=== PATIENT | male | born 1975 | race African-American/Black ===

== ENCOUNTER 2016-09-24 21:27 | Inpatient (IN) | payer OTHER ==
--- NOTE | 2016-09-24 21:44 | HP ---
CIWA Score - CIWA Score Nausea/Vomitin-No Nausea/No Vomiting Muscle Tremors: 3 Anxiety: 3 Agitation: 3 Paroxysmal Sweats: 2 Orientation: 2-Disoriented Date<2 days Tacttile Disturbances: 2-Mild Itch/Numbness/Burn (B/L FINGERTIPS AND B/L TOES) Auditory Disturbances: 0-None Visual Disturbances: 0-None Headache: 2-Mild CIWA-Ar Total Score: 17 Admission ROS S - HPI Chief Complaint: WITHDRAWAL SYMPTOMS Allergies/Adverse Reactions: Allergies Allergy/AdvReac Type Severity Reaction Status Date / Time No Known Allergies Allergy Verified 10/12/13 14:23 History of Present Illness: 40 Y.O. MAN WITH A 10 YEAR H/O OF ALCOHOL AND DRUG DEPENDENCE IS SEEKING DETOX. HE WAS PREVIOUSLY HERE FOR DETOX IN 2013. HE REPORTS HIS LONGEST PERIOD OF SOBRIETY HAS BEEN 3 YEARS WHILE INCARCERATED. Exam Limitations: No Limitations - Ebola screening Have you traveled outside of the country in the last 21 days: No (N) Have you had contact with anyone from an Ebola affected area: No Do you have a fever: No - Review of Systems Constitutional: Chills, Diaphoresis, Loss of Appetite, Unintentional Wgt. Loss EENT: reports: Blurred Vision, Double Vision, Tearing Respiratory: reports: No Symptoms reported Cardiac: reports: No Symptoms Reported GI: reports: No Symptoms Reported : reports: No Symptoms Reported Musculoskeletal: reports: No Symptoms Reported Integumentary: reports: No Symptoms Reported Neuro: reports: Headache, Numbness, Tremors Endocrine: reports: No Symptoms Reported Hematology: reports: No Symptoms Reported Psychiatric: reports: Depressed Other Systems: Reviewed and Negative Patient History - Patient Medical History Hx Anemia: No Hx Asthma: No Hx Chronic Obstructive Pulmonary Disease (COPD): No Hx Cancer: No Hx Cardiac Disorders: No Hx Congestive Heart Failure: No Hx Hypertension: Yes (non compliance) Hx Hypercholesterolemia: Yes (non compliance) Hx Pacemaker: No HX Cerebrovascular Accident: No Hx Seizures: No Hx Dementia: No Hx Diabetes: Yes (non compliance with med) Hx Gastrointestinal Disorders: No Hx Liver Disease: No Hx Genitourinary Disorders: No Hx Sexually Transmitted Disorders: No Hx Renal Disease (ESRD): No Hx Thyroid Disease: No Hx Human Immunodeficiency Virus (HIV): No (last 2012) Hx Hepatitis C: No Hx Depression: Yes Hx Suicide Attempt: No Hx Bipolar Disorder: No Hx Schizophrenia: No - Patient Surgical History Past Surgical History: No - PPD History Previous Implant?: Yes Documented Results: Negative w/proof Date: 10/14/13 Results: 0 PPD to be Administered?: Yes - Reproductive History Patient is a Female of Child Bearing Age (11 -55 yrs old): No - Smoking Cessation Smoking history: Current every day smoker Have you smoked in the past 12 months: Yes Aproximately how many cigarettes per day: 10 Cigars Per Day: 0 Hx Chewing Tobacco Use: No Initiated information on smoking cessation: Yes 'Breaking Loose' booklet given: 09/24/16 - Substance & Tx. History Hx Alcohol Use: Yes Hx Substance Use: Yes Substance Use Type: Alcohol, Cocaine, Marijuana Hx Substance Use Treatment: Yes (DETOX AND REHAB ) - Substances Abused Alcohol Route: Oral Frequency: Daily Amount used: 2 PINTS OF VODKA + 2 CANS 24 OZ BEERS Age of first use: 16 Date of Last Use: 09/24/16 Cocaine Route: Smoking Frequency: Daily Amount used: $500 Age of first use: 30 Date of Last Use: 09/23/16 Marijuana/Hashish Route: Smoking Frequency: Daily Amount used: 4-5 BLUNTS Age of first use: 7 Date of Last Use: 09/24/16 Family Disease History - Family Disease History Family Disease History: Diabetes: Father (alcohol,), Mother (on insulin) , Heart Disease: Mother Admission Physical Exam [facility] - Vital Signs Vital Signs: Vital Signs 09/24/16 22:22 Temperature 97.0 F L Pulse Rate 99 H Respiratory 16 Rate Blood Pressure 120/73 - Physical General Appearance: Yes: Disheveled, Tremorous, Irritable, Anxious HEENTM: Yes: Hearing grossly Normal, Normal ENT Inspection, Normocephalic, Normal Voice, Tm's normal Respiratory: Yes: Chest Non-Tender, Lungs Clear, Normal Breath Sounds, No Respiratory Distress, No Accessory Muscle Use Neck: Yes: Trachea in good position Breast: Yes: Breast Exam Deferred Cardiology: Yes: Regular Rhythm, Regular Rate, S1, S2 Abdominal: Yes: Non Tender, Flat, Soft Genitourinary: Yes: Other (NO COMPLAINTS REPORTED) Back: Yes: Normal Inspection Musculoskeletal: Yes: full range of Motion Extremities: Yes: Normal Inspection, Normal Range of Motion, Tremors Neurological: Yes: Alert, Normal Response Integumentary: Yes: Normal Color, Dry, Warm Lymphatic: Yes: Within Normal Limits - Diagnostic (1) Cannabis dependence Current Visit: Yes Status: Chronic (2) Cocaine dependence Current Visit: Yes Status: Chronic (3) Alcohol dependence with uncomplicated withdrawal Current Visit: Yes Status: Chronic (4) Hypertension Current Visit: Yes Status: Chronic (5) Nicotine dependence Current Visit: Yes Status: Chronic (6) Diabetes type 2, uncontrolled Current Visit: Yes Status: Chronic Qualifiers: Diabetes mellitus complication status: with neurologic complications Diabetes mellitus complication detail: with unspecified neuropathy Cleared for Admission [facility] - Detox or Rehab [facility] Level of Care: Medically Managed Detox Regimen/Protocol: Librium S Breath Alcohol Content Breath Alcohol Content: 0 Vital Signs - Vital Signs Vital Signs Refused: No Temperature: 97.0 F Temperature Source: Oral Pulse Rate: 99 Respiratory Rate: 16 Blood Pressure: 120/73 BP Location: Left Arm Blood Pressure Position: Sitting - Height Height: 5 ft 4 in - Weight Weight: 173 lb Weight Measurement Method: Standing Scale Body Mass Index (BMI): 29.7 Urine Drug Screen - Control Is Test Valid: Yes - Results Drug Screen Negative: No Urine Drug Screen Results: THC-Marijuana, SADE-Cocaine
[2016-09-24 22:22] VITALS: BMI 29.7
[2016-09-24] MEDS ORDERED: P-EPHED 60MG/TRIPROLIDI 2.5MG TABLET PO PRN (22:36)
[2016-09-24] MEDS ORDERED: hydrOXYzine PAMOATE 50 MG CAPSULE (FP) PO PRN (22:36)
[2016-09-24] MEDS ORDERED: ACETAMINOPHEN 325 MG TABLET (FP) PO PRN (22:36)
[2016-09-24] MEDS ORDERED: chlordiazePOXIDE HCL 25 MG CAPSULE PO PRN (22:36)
[2016-09-24] MEDS ORDERED: MENTHOL/PHENOL 1 EACH UD MM PRN (22:36)
[2016-09-24] MEDS ORDERED: MAGNESIUM HYDROX 2400MG/30ML ORAL SUSPENSION 30 ML CUP PO PRN (22:36)
[2016-09-24] MEDS ORDERED: IBUPROFEN 400 MG TABLET (FP) PO PRN (22:36)
[2016-09-24] MEDS ORDERED: guaiFENesin/D-METHORPHAN HB 10 ML UNIT-DOSE CUPS PO PRN (22:36)
[2016-09-24] MEDS ORDERED: chlordiazePOXIDE HCL 25 MG CAPSULE PO ONE (22:36)
[2016-09-24] MEDS ORDERED: LOPERAMIDE HCL 2 MG CAPSULE PO PRN (22:36)
[2016-09-24] MEDS ORDERED: MAG HYDROX/AL HYDROX/SIMETH 30 ML UNIT-DOSE CUP PO PRN (22:36)
[2016-09-24] MEDS ORDERED: MAGNESIUM CITRATE 300 ML BOTTLE PO PRN (22:36)
[2016-09-24] MEDS ORDERED: INSULIN (NOVOLOG) ASPART 100 UNITS/ML 10ML VIAL ONE (23:46)
[2016-09-24] MEDS: INSULIN SLIDING SCALE (NOVOLOG) 1 VIAL SQ SCH (23:49)
[2016-09-25] MEDS: chlordiazePOXIDE HCL 25 MG CAPSULE PO SCH ×5 (05:42→22:27)
[2016-09-25] MEDS ORDERED: metFORMIN HCL 500 MG TABLET (FP) PO SCH (07:00)
[2016-09-25] MEDS ORDERED: INSULIN (NOVOLOG) ASPART 100 UNITS/ML 10ML VIAL ONE ×3 (07:41→16:58)
[2016-09-25] MEDS: INSULIN SLIDING SCALE (NOVOLOG) 1 VIAL SQ SCH ×4 (07:44→22:31)
--- NOTE | 2016-09-25 08:42 | EKG ---
Test Reason : Blood Pressure : / mmHG Vent. Rate : 105 BPM Atrial Rate : 105 BPM P-R Int : 166 ms QRS Dur : 082 ms QT Int : 330 ms P-R-T Axes : 059 061 070 degrees QTc Int : 436 ms SINUS TACHYCARDIA WITH PREMATURE SUPRAVENTRICULAR COMPLEXES MINIMAL VOLTAGE CRITERIA FOR LVH, MAY BE NORMAL VARIANT NONSPECIFIC T WAVE ABNORMALITY ABNORMAL ECG NO PREVIOUS ECGS AVAILABLE Confirmed by RAMÍREZ LILLY MD ([id number]) on 09/25/2016 8:41:54 AM Referred By: Confirmed By:RAMÍREZ LILLY MD
--- NOTE | 2016-09-25 10:27 | PN ---
S CIWA - CIWA Score Nausea/Vomitin-No Nausea/No Vomiting Muscle Tremors: 4-Moderate,w/Arms Extend Anxiety: 3 Agitation: 3 Paroxysmal Sweats: 3 Orientation: 0-Oriented Tacttile Disturbances: 2-Mild Itch/Numbness/Burn Auditory Disturbances: 0-None Visual Disturbances: 0-None Headache: 0-None Present CIWA-Ar Total Score: 15 BHS Progress Note (SOAP) Subjective: Anxiety,tremors,sweating,interrupted sleep,restless,numbness & tingling. Objective: 09/25/16 10:26 Vital Signs - 8 hr 09/25/16 09/25/16 09/25/16 03:30 06:28 09:29 Temperature 95.8 F L 95.9 F L Pulse Rate 96 H 93 H Respiratory 18 18 20 Rate Blood Pressure 123/84 123/85 Laboratory Tests 09/24/16 09/25/16 23:38 05:40 POC Glucometer > 600 327 Assessment: 09/25/16 10:26 Withdrawal sx. Plan: Continue detox
[2016-09-25] MEDS: PRENATAL VITAMINS W/ FOLIC ACID TABLET (FP) PO SCH (10:42)
[2016-09-25] MEDS: NICOTINE 21 MG/24 HOURS TOPICAL PATCH TD SCH (10:43)
[2016-09-25] MEDS: ASPIRIN 81 MG CHEWABLE TABLETS PO SCH (10:43)
[2016-09-25] MEDS: metFORMIN HCL 500 MG TABLET (FP) PO SCH ×2 (12:00→17:07)
[2016-09-25] MEDS ORDERED: glyBURIDE 5 MG TABLET (UD) PO ONE (13:30)
--- NOTE | 2016-09-25 13:32 | CONSULT ---
[facility] Psychiatric Consult - Data Date of interview: 09/25/16 Admission source: [facility] Identifying data: Readmisssion to [facility] for this 40 y/o AA male seeking detox treatment for alcohol,cocaine and marijuana dependence.Patient is single, a father of four,homeless,unemployed and deprived of any source of income. Substance Abuse History: - Smoking Cessation. Smoking history: Current every day smoker. Have you smoked in the past 12 months: Yes. Aproximately how many cigarettes per day: 10. Cigars Per Day: 0. Hx Chewing Tobacco Use: No. Initiated information on smoking cessation: Yes. 'Breaking Loose' booklet given : 09/24/16. - Substance & Tx. History. Hx Alcohol Use: Yes. Hx Substance Use : Yes. Substance Use Type: Alcohol, Cocaine, Marijuana. Hx Substance Use Treatment: Yes (DETOX AND REHAB ). - Substances Abused. Alcohol. Route: Oral. Frequency: Daily. Amount used: 2 PINTS OF VODKA + 2 CANS 24 OZ BEERS. Age of first use: 16. Date of Last Use: 09/24/16. Cocaine. Route: Smoking. Frequency: Daily. Amount used: $500. Age of first use: 30. Date of Last Use: 09/23/16. Marijuana/Hashish. Route: Smoking. Frequency: Daily. Amount used: 4-5 BLUNTS. Age of first use: 7. Date of Last Use: 09/24/16. Confirmed by patient. Medical History: Hypertension,hypercholesterolemia and diabetes mellitus. Psychiatric History: Patient denies. Physical/Sexual Abuse/Trauma History: Patient denies. Additional Comment: Urine Drug Screen Results: THC-Marijuana, SADE-Cocaine.Noted. Mental Status Exam - Mental Status Exam Alert and Oriented to: Place, Person Cognitive Function: Impaired Patient Appearance: Unkempt, Disheveled Mood: Withdrawn Affect: Mood Congruent Patient Behavior: Sedated (light sedation), Fatigued Speech Pattern: Delayed, Slurred (non spontaneous but goal-directed) Voice Loudness: Moderately Soft/Quiet Thought Process: Disoriented (to time : knows year and month;not exact date) Thought Disorder: Not Present Hallucinations: Denies Suicidal Ideation: Denies Homicidal Ideation: Denies Insight/Judgement: Poor Sleep: Well Appetite: Good Muscle strength/Tone: Normal Gait/Station: Normal (observed walking earlier around the unit) Psychiatric Findings - Problem List ([place] 1, 2,3) (1) Alcohol dependence with uncomplicated withdrawal Current Visit: Yes Status: Acute (2) Cannabis dependence Current Visit: Yes Status: Acute (3) Cocaine dependence Current Visit: Yes Status: Acute (4) Nicotine dependence Current Visit: Yes Status: Acute (5) Drug-induced mood disorder Current Visit: Yes Status: Acute (6) Diabetes type 2, uncontrolled Current Visit: Yes Status: Chronic Qualifiers: Diabetes mellitus complication status: with neurologic complications Diabetes mellitus complication detail: with unspecified neuropathy (7) Hypertension Current Visit: Yes Status: Chronic (8) Essential hypertension Current Visit: Yes Status: Chronic (9) Hypercholesterolemia Current Visit: Yes Status: Chronic - Initial Treatment Plan Initial Treatment Plan: Psychoeducation.Detoxification.Observation.
[2016-09-25] MEDS: glyBURIDE 5 MG TABLET (UD) PO SCH (17:07)
--- NOTE | 2016-09-25 17:32 | EKG ---
Test Reason : Blood Pressure : / mmHG Vent. Rate : 089 BPM Atrial Rate : 089 BPM P-R Int : 158 ms QRS Dur : 082 ms QT Int : 370 ms P-R-T Axes : 044 051 054 degrees QTc Int : 450 ms NORMAL SINUS RHYTHM NORMAL ECG WHEN COMPARED WITH ECG OF 24-SEP-2016 21:53, PREMATURE SUPRAVENTRICULAR COMPLEXES ARE NO LONGER PRESENT NONSPECIFIC T WAVE ABNORMALITY NO LONGER EVIDENT IN ANTERIOR LEADS CLINICAL CORRELATION IS RECOMMENDED Confirmed by TERRY LANTIGUA, YOEL ([id number]) on 09/25/2016 5:31:40 PM Referred By: Confirmed By:YOEL STEWART MD
[2016-09-25] MEDS: ATORVASTATIN CA 40 MG TABLET (FP) PO SCH (22:27)
[2016-09-25] MEDS: THIAMINE HCL 100 MG TABLET (FP) PO SCH (22:27)
[2016-09-25] MEDS: diphenhydrAMINE HCL 50 MG CAPSULE PO PRN (22:27)
[2016-09-25] MEDS: INSULIN DETEMIR 100 UNITS/ML MDV SQ SCH (22:31)
[2016-09-26] MEDS: metFORMIN HCL 500 MG TABLET (FP) PO SCH ×2 (06:02→16:54)
[2016-09-26] MEDS: chlordiazePOXIDE HCL 25 MG CAPSULE PO SCH ×3 (06:02→16:53)
[2016-09-26] MEDS: glyBURIDE 5 MG TABLET (UD) PO SCH ×2 (06:02→16:54)
[2016-09-26] MEDS ORDERED: INSULIN (NOVOLOG) ASPART 100 UNITS/ML 10ML VIAL ONE ×4 (06:05→21:40)
[2016-09-26] MEDS: INSULIN SLIDING SCALE (NOVOLOG) 1 VIAL SQ SCH ×5 (06:09→22:40)
[2016-09-26 09:52] LABS: ALBUMIN 3.2 g/dl (3.4-5.0); ANION GAP 8 (8-16); BILIRUBIN,TOTAL 0.2 mg/dL (0.2-1.0); CALCIUM 9.1 mg/dL (8.5-10.1); CO2 27 mmol/L (21-32); SGOT/AST 12 U/L (15-37); SGPT/ALT 28 U/L (12-78); TOT PROT 6.7 g/dl (6.4-8.2)
[2016-09-26 09:53] LABS: ALK PHOS 70 U/L (45-117)
[2016-09-26 09:59] LABS: MCHC 33.2 g/dl (32.0-35.9); MEAN CELL VOLUME 90.2 fl (80-96); MEAN PLT VOLUME 9.9 fl (7.5-11.1); PLATELET COUNT 189 K/MM3 (134-434)
[2016-09-26] MEDS: NICOTINE 21 MG/24 HOURS TOPICAL PATCH TD SCH (11:05)
[2016-09-26] MEDS: ASPIRIN 81 MG CHEWABLE TABLETS PO SCH (11:05)
[2016-09-26] MEDS: PRENATAL VITAMINS W/ FOLIC ACID TABLET (FP) PO SCH (11:05)
[2016-09-26 11:45] LABS: GLUCOSE,RANDOM 395 mg/dL (74-106)
[2016-09-26 13:01] LABS: HIV 1 & 2 AB NEGATIVE; HIV 1 AGp24 NEGATIVE
--- NOTE | 2016-09-26 13:17 | PN ---
S CIWA - CIWA Score Nausea/Vomitin-Mild Nausea/No Vomiting Muscle Tremors: 4-Moderate,w/Arms Extend Anxiety: 4-Mod. Anxious/Guarded Agitation: 3 Paroxysmal Sweats: 3 Orientation: 0-Oriented Tacttile Disturbances: 0-None Auditory Disturbances: 0-None Visual Disturbances: 0-None Headache: 0-None Present CIWA-Ar Total Score: 15 BHS Progress Note (SOAP) Subjective: Anxiety,tremors,sweating,interrupted sleep,restless Objective: 09/26/16 13:16 Vital Signs - 8 hr 09/26/16 09/26/16 06:26 09:17 Temperature 96.8 F L 98.2 F Pulse Rate 90 92 H Respiratory 18 20 Rate Blood Pressure 142/88 127/88 Laboratory Tests 09/24/16 09/25/16 09/25/16 23:38 05:40 07:00 WBC RBC Hgb Hct MCV MCHC RDW Plt Count MPV Sodium Potassium Chloride Carbon Dioxide Anion Gap BUN Creatinine Creat Clearance w eGFR POC Glucometer > 600 327 Random Glucose Calcium Total Bilirubin AST ALT Alkaline Phosphatase Total Protein Albumin HIV 1&2 Antibody Screen Negative HIV P24 Antigen Negative 09/25/16 09/25/16 09/25/16 11:23 16:26 21:03 WBC RBC Hgb Hct MCV MCHC RDW Plt Count MPV Sodium Potassium Chloride Carbon Dioxide Anion Gap BUN Creatinine Creat Clearance w eGFR POC Glucometer 600 250 244 Random Glucose Calcium Total Bilirubin AST ALT Alkaline Phosphatase Total Protein Albumin HIV 1&2 Antibody Screen HIV P24 Antigen 09/26/16 09/26/16 09/26/16 06:01 07:00 07:00 WBC 6.0 RBC 4.50 Hgb 13.5 Hct 40.6 MCV 90.2 MCHC 33.2 RDW 14.0 Plt Count 189 MPV 9.9 Sodium 138 Potassium 4.0 Chloride 103 Carbon Dioxide 27 Anion Gap 8 BUN 16 Creatinine 1.0 Creat Clearance w eGFR > 60 POC Glucometer 393 Random Glucose 395 H* Calcium 9.1 Total Bilirubin 0.2 D AST 12 L D ALT 28 D Alkaline Phosphatase 70 Total Protein 6.7 Albumin 3.2 L HIV 1&2 Antibody Screen HIV P24 Antigen labs noted Assessment: 09/26/16 13:17 Withdrawal sx. Plan: Continue detox
[2016-09-26] MEDS: chlordiazePOXIDE 5 MG CAPSULE PO SCH (22:36)
[2016-09-26] MEDS: THIAMINE HCL 100 MG TABLET (FP) PO SCH (22:36)
[2016-09-26] MEDS: ATORVASTATIN CA 40 MG TABLET (FP) PO SCH (22:36)
[2016-09-26] MEDS: diphenhydrAMINE HCL 50 MG CAPSULE PO PRN (22:37)
[2016-09-26] MEDS: INSULIN DETEMIR 100 UNITS/ML MDV SQ SCH (22:40)
[2016-09-27] MEDS: chlordiazePOXIDE 5 MG CAPSULE PO SCH ×3 (05:48→17:00)
[2016-09-27] MEDS ORDERED: INSULIN (NOVOLOG) ASPART 100 UNITS/ML 10ML VIAL ONE ×4 (05:51→21:30)
[2016-09-27] MEDS: INSULIN SLIDING SCALE (NOVOLOG) 1 VIAL SQ SCH ×4 (07:22→22:35)
[2016-09-27] MEDS: glyBURIDE 5 MG TABLET (UD) PO SCH ×2 (07:22→17:00)
[2016-09-27] MEDS: metFORMIN HCL 500 MG TABLET (FP) PO SCH ×2 (07:22→17:00)
[2016-09-27] MEDS: PRENATAL VITAMINS W/ FOLIC ACID TABLET (FP) PO SCH (10:42)
[2016-09-27] MEDS: NICOTINE 21 MG/24 HOURS TOPICAL PATCH TD SCH (10:42)
[2016-09-27] MEDS: ASPIRIN 81 MG CHEWABLE TABLETS PO SCH (10:42)
[2016-09-27 15:04] LABS: URINE APPEARANCE CLEAR; URINE BILIRUBIN NEGATIVE (NEGATIVE); URINE COLOR STRAW; URINE GLUCOSE (UA) 3+ (NEGATIVE); URINE KETONE NEGATIVE (NEGATIVE); URINE LEUK ESTERASE NEGATIVE (NEGATIVE); URINE NITRITE NEGATIVE (NEGATIVE); URINE UROBILINOGEN NEGATIVE E.U./dl (0.2-1.0)
[2016-09-27 15:10] LABS: URINE BLOOD 1+ (NEGATIVE); URINE PROTEIN 1+ (NEGATIVE)
[2016-09-27 15:14] LABS: URINE RBC 2 /hpf (0-3)
--- NOTE | 2016-09-27 15:45 | PN ---
BHS Progress Note (SOAP) Subjective: Sweating,interrupted sleep,restless Objective: 09/27/16 15:44 Vital Signs - 8 hr 09/27/16 09/27/16 10:09 13:33 Temperature 98.6 F 96.1 F L Pulse Rate 94 H 85 Respiratory 18 20 Rate Blood Pressure 130/89 139/88 Laboratory Last Values WBC 6.0 K/mm3 (4.0-10.0) 09/26/16 07:00 RBC 4.50 M/mm3 (4.00-5.60) 09/26/16 07:00 Hgb 13.5 GM/dL (11.7-16.9) 09/26/16 07:00 Hct 40.6 % (35.4-49) 09/26/16 07:00 MCV 90.2 fl (80-96) 09/26/16 07:00 MCHC 33.2 g/dl (32.0-35.9) 09/26/16 07:00 RDW 14.0 % (11.9-15.9) 09/26/16 07:00 Plt Count 189 K/MM3 (134-434) 09/26/16 07:00 MPV 9.9 fl (7.5-11.1) 09/26/16 07:00 Sodium 138 mmol/L (136-145) 09/26/16 07:00 Potassium 4.0 mmol/L (3.5-5.1) 09/26/16 07:00 Chloride 103 mmol/L (98-107) 09/26/16 07:00 Carbon Dioxide 27 mmol/L (21-32) 09/26/16 07:00 Anion Gap 8 (8-16) 09/26/16 07:00 BUN 16 mg/dL (7-18) 09/26/16 07:00 Creatinine 1.0 mg/dL (0.7-1.3) 09/26/16 07:00 Creat Clearance w eGFR > 60 (>60) 09/26/16 07:00 POC Glucometer 447 UNITS (()) 09/27/16 11:21 Random Glucose 395 mg/dL (74-106) H* 09/26/16 07:00 Calcium 9.1 mg/dL (8.5-10.1) 09/26/16 07:00 Total Bilirubin 0.2 mg/dL (0.2-1.0) D 09/26/16 07:00 AST 12 U/L (15-37) L D 09/26/16 07:00 ALT 28 U/L (12-78) D 09/26/16 07:00 Alkaline Phosphatase 70 U/L (45-117) 09/26/16 07:00 Total Protein 6.7 g/dl (6.4-8.2) 09/26/16 07:00 Albumin 3.2 g/dl (3.4-5.0) L 09/26/16 07:00 Urine Color Straw 09/27/16 11:30 Urine Appearance Clear 09/27/16 11:30 Urine pH 6.0 (5.0-8.0) 09/27/16 11:30 Ur Specific [place] 1.029 (1.001-1.035) 09/27/16 11:30 Urine Protein 1+ (NEGATIVE) H 09/27/16 11:30 Urine Glucose (UA) 3+ (NEGATIVE) H 09/27/16 11:30 Urine Ketones Negative (NEGATIVE) 09/27/16 11:30 Urine Blood 1+ (NEGATIVE) H 09/27/16 11:30 Urine Nitrite Negative (NEGATIVE) 09/27/16 11:30 Urine Bilirubin Negative (NEGATIVE) 09/27/16 11:30 Urine Urobilinogen Negative E.U./dl (0.2-1.0) 09/27/16 11:30 Ur Leukocyte Esterase Negative (NEGATIVE) 09/27/16 11:30 Urine RBC 2 /hpf (0-3) 09/27/16 11:30 Urine WBC None /hpf (3-5) 09/27/16 11:30 Ur Epithelial Cells Rare /hpf (FEW) 09/27/16 11:30 RPR Titer Nonreactive (NONREACTIVE) 09/26/16 07:00 Hepatitis C Antibody <0.1 s/co ratio (0.0-0.9) 09/26/16 07:00 HIV 1&2 Antibody Screen Negative 09/25/16 07:00 HIV P24 Antigen Negative 09/25/16 07:00 labs noted Assessment: 09/27/16 15:45 Withdrawal sx. Plan: Continue detox
[2016-09-27] MEDS: chlordiazePOXIDE HCL 10 MG CAPSULE PO SCH (22:34)
[2016-09-27] MEDS: ATORVASTATIN CA 40 MG TABLET (FP) PO SCH (22:34)
[2016-09-27] MEDS: THIAMINE HCL 100 MG TABLET (FP) PO SCH (22:34)
[2016-09-27] MEDS: INSULIN DETEMIR 100 UNITS/ML MDV SQ SCH (22:35)
[2016-09-27] MEDS: diphenhydrAMINE HCL 50 MG CAPSULE PO PRN (22:36)
[2016-09-28] MEDS: chlordiazePOXIDE HCL 10 MG CAPSULE PO SCH (06:09)
[2016-09-28] MEDS: metFORMIN HCL 500 MG TABLET (FP) PO SCH (06:09)
[2016-09-28] MEDS: glyBURIDE 5 MG TABLET (UD) PO SCH (06:09)
[2016-09-28] MEDS ORDERED: INSULIN (NOVOLOG) ASPART 100 UNITS/ML 10ML VIAL ONE (06:15)
[2016-09-28] MEDS: INSULIN SLIDING SCALE (NOVOLOG) 1 VIAL SQ SCH (06:17)
[2016-09-28 06:37] VITALS: BP 130/86; PULSE 94; TEMP 97.5
--- NOTE | 2016-09-28 13:22 | DS ---
[facility] Detox Discharge Summary Admission Date: 09/24/16 Discharge Date: 09/28/16 - History Present History: Alcohol Dependence, Cannabis Dependence, Cocaine Dependence Additional Comments: ADVISED PATIENT TO [place] [facility] [place] [facility] [place] AFTER DISCHARGE FROM DETOX FOR GENERAL MEDICAL ASSESSMENT AND FOR ABNORMAL ADMISSION LAB VALUES. Pertinent Past History: HTN, Hypercholesterolemia, Type II DM, Depression. - Physical Exam Results Vital Signs: Vital Signs Temperature 97.5 F L 09/28/16 06:36 Pulse Rate 94 H 09/28/16 06:36 Respiratory Rate 18 09/28/16 06:36 Blood Pressure 130/86 09/28/16 06:36 O2 Sat by Pulse Oximetry (%) Pertinent Admission Physical Exam Findings: WITHDRAWAL SYMPTOMS. Laboratory Last Values WBC 6.0 K/mm3 (4.0-10.0) 09/26/16 07:00 RBC 4.50 M/mm3 (4.00-5.60) 09/26/16 07:00 Hgb 13.5 GM/dL (11.7-16.9) 09/26/16 07:00 Hct 40.6 % (35.4-49) 09/26/16 07:00 MCV 90.2 fl (80-96) 09/26/16 07:00 MCHC 33.2 g/dl (32.0-35.9) 09/26/16 07:00 RDW 14.0 % (11.9-15.9) 09/26/16 07:00 Plt Count 189 K/MM3 (134-434) 09/26/16 07:00 MPV 9.9 fl (7.5-11.1) 09/26/16 07:00 Sodium 138 mmol/L (136-145) 09/26/16 07:00 Potassium 4.0 mmol/L (3.5-5.1) 09/26/16 07:00 Chloride 103 mmol/L (98-107) 09/26/16 07:00 Carbon Dioxide 27 mmol/L (21-32) 09/26/16 07:00 Anion Gap 8 (8-16) 09/26/16 07:00 BUN 16 mg/dL (7-18) 09/26/16 07:00 Creatinine 1.0 mg/dL (0.7-1.3) 09/26/16 07:00 Creat Clearance w eGFR > 60 (>60) 09/26/16 07:00 POC Glucometer 273 UNITS (()) 09/28/16 06:12 Random Glucose 395 mg/dL (74-106) H* 09/26/16 07:00 Calcium 9.1 mg/dL (8.5-10.1) 09/26/16 07:00 Total Bilirubin 0.2 mg/dL (0.2-1.0) D 09/26/16 07:00 AST 12 U/L (15-37) L D 09/26/16 07:00 ALT 28 U/L (12-78) D 09/26/16 07:00 Alkaline Phosphatase 70 U/L (45-117) 09/26/16 07:00 Total Protein 6.7 g/dl (6.4-8.2) 09/26/16 07:00 Albumin 3.2 g/dl (3.4-5.0) L 09/26/16 07:00 Urine Color Straw 09/27/16 11:30 Urine Appearance Clear 09/27/16 11:30 Urine pH 6.0 (5.0-8.0) 09/27/16 11:30 Ur Specific [place] 1.029 (1.001-1.035) 09/27/16 11:30 Urine Protein 1+ (NEGATIVE) H 09/27/16 11:30 Urine Glucose (UA) 3+ (NEGATIVE) H 09/27/16 11:30 Urine Ketones Negative (NEGATIVE) 09/27/16 11:30 Urine Blood 1+ (NEGATIVE) H 09/27/16 11:30 Urine Nitrite Negative (NEGATIVE) 09/27/16 11:30 Urine Bilirubin Negative (NEGATIVE) 09/27/16 11:30 Urine Urobilinogen Negative E.U./dl (0.2-1.0) 09/27/16 11:30 Ur Leukocyte Esterase Negative (NEGATIVE) 09/27/16 11:30 Urine RBC 2 /hpf (0-3) 09/27/16 11:30 Urine WBC None /hpf (3-5) 09/27/16 11:30 Ur Epithelial Cells Rare /hpf (FEW) 09/27/16 11:30 RPR Titer Nonreactive (NONREACTIVE) 09/26/16 07:00 Hepatitis C Antibody <0.1 s/co ratio (0.0-0.9) 09/26/16 07:00 HIV 1&2 Antibody Screen Negative 09/25/16 07:00 HIV P24 Antigen Negative 09/25/16 07:00 LABS NOTED. - Treatment Hospital Course: Detox Protocol Followed, Detoxed Safely, Responded well, Discharged Condition Good Patient has Accepted a Rehab Referral to: NO - PATIENT TO GO HOME AT THIS TIME, WILL PURSUE REHAB AT A LATER DATE. - Medication Discharge Medications: Ambulatory Orders Aspirin [ASA -] 81 mg PO DAILY #30 mg 09/28/16 Atorvastatin Ca [Lipitor] 80 mg PO HS #30 mg 09/28/16 Enalapril Maleate [Vasotec -] 10 mg PO BID #60 mg 09/28/16 Glyburide [Micronase -] 5 mg PO BID #60 mg 09/28/16 Insulin (Novolog) [Novolog Flexpen -] 0 units SQ ACHS #1 ml 09/28/16 Insulin Glargine,Hum.rec.anlog [Lantus Solostar PEN -] 15 units SQ HS #1 ml Loratadine [Claritin -] 10 mg PO DAILY #30 mg 09/28/16 Metformin HCl [Glucophage] 1,000 mg PO BIDAC #60 mg 09/28/16 - Diagnosis (1) Alcohol dependence with uncomplicated withdrawal Status: Acute (2) Cannabis dependence Status: Acute (3) Drug-induced mood disorder Status: Acute (4) Nicotine dependence Status: Chronic Qualifiers: Nicotine product type: cigarettes Substance use status: uncomplicated Qualified Code(s): F17.210 - Nicotine dependence, cigarettes, uncomplicated (5) Syncope Status: Acute Qualifiers: Syncope type: unspecified Qualified Code(s): R55 - Syncope and collapse (6) Diabetes type 2, uncontrolled Status: Chronic Qualifiers: Diabetes mellitus complication status: with neurologic complications Diabetes mellitus complication detail: with unspecified neuropathy Diabetes mellitus terminologist insulin use: with jail use Qualified Code(s): E11.40 - Type 2 diabetes mellitus with diabetic neuropathy, unspecified; E11.65 - Type 2 diabetes mellitus with hyperglycemia; Z79.4 - terminal clerk (current) use of insulin (7) Essential hypertension Status: Chronic (8) Hypercholesterolemia Status: Chronic (9) Cocaine dependence, uncomplicated Status: Acute - AMA Did Patient Leave Against Medical Advice: No
== END 2016-09-28 09:45 | disposition home or self-care (01) | DRG 774 ==
LOC: YASAS 21:27 → Y3N 21:40
PROVIDERS: ADMIT Internal Medicine; ATTEND Internal Medicine
PROC: HZ2ZZZZ Detoxification Services for Substance Abuse Treatment (ICD-10-PCS; principal; 2016-09-28)
DX: F10.230 Alcohol dependence with withdrawal, uncomplicated (principal); F14.20 Cocaine dependence, uncomplicated; F12.20 Cannabis dependence, uncomplicated; F17.210 Nicotine dependence, cigarettes, uncomplicated; F19.24 Other psychoactive substance dependence with psychoactive substance-induced mood disorder; E11.65 Type 2 diabetes mellitus with hyperglycemia; E11.40 Type 2 diabetes mellitus with diabetic neuropathy, unspecified; Z79.4 Long term (current) use of insulin; I10 Essential (primary) hypertension; E78.00 Pure hypercholesterolemia, unspecified
CPT/HCPCS: 36415; 80053; 81003; 81015; 85027; 86593; 87389; 93005; 93010

== ENCOUNTER 2020-02-13 17:06 | Inpatient (IN) | payer OTHER ==
--- NOTE | 2020-02-13 18:33 | BHS.RME ---
Substance Use & Tx History - Substance Use History Alcohol Substance amount: 1 jazmin Arteaga Frequency of use: Daily Substance route: Oral Date of Last Use: 02/13/20 Cocaine- Powder Substance amount: 3 grams Frequency of use: Daily Substance route: Inhalation (ex: sniffing or snorting) Date of Last Use: 02/12/20 Marijuana/Hashish Substance amount: 10 blunts Frequency of use: Daily Substance route: Smoking Date of Last Use: 02/12/20 Physical/Psych/Mental Status - Behavior General Behavior: Increased activity (restlessness, agitation) Eye Contact: Normal - Cooperativeness Cooperativeness: Cooperative - Thinking Thought Processes: Goal Directed - Physical Health Problems Is patient presently having any pain?: No Does patient presently have any injuries (include location): No Does patient currently have a fever: No Is patient : No CIWA Nausea/Vomitin-No Nausea/No Vomiting Muscle Tremors: 2 Anxiety: 3 Agitation: 1-Slight > Activity Paroxysmal Sweats: No Perspiration Orientation: 0-Oriented Tacttile Disturbances: 1-Very Mild Itch/Numbness Auditory Disturbances: 0-None Visual Disturbances: 2-Mild Sensitivity Headache: 5-Severe CIWA-Ar Total Score: 14
--- NOTE | 2020-02-13 18:42 | HP ---
CIWA Score Nausea/Vomitin-No Nausea/No Vomiting Muscle Tremors: 2 Anxiety: 3 Agitation: 1-Slight > Activity Paroxysmal Sweats: No Perspiration Orientation: 0-Oriented Tacttile Disturbances: 1-Very Mild Itch/Numbness Auditory Disturbances: 0-None Visual Disturbances: 2-Mild Sensitivity Headache: 5-Severe CIWA-Ar Total Score: 14 - Admission Criteria OASAS Guidelines: Admission for Medically Managed Detox: Requires at least one of the followin. CIWA greater than 12 2. Seizures within the past 24 hours 3. Delirium tremens within the past 24 hours 4. Hallucinations within the past 24 hours 5. Acute intervention needed for co occurring medical disorder 6. Acute intervention needed for co occurring psychiatric disorder 7. Severe withdrawal that cannot be handled at a lower level of care (continued vomiting, continued diarrhea, abnormal vital signs) requiring intravenous medication and/or fluids 8. Patient presents the following: CIWA greater than 12 Admission Criteria Met: Admission criteria met Admitting History and Physical - Admission Chief Complaint: alcohol withdrawal symptoms History Source: Patient Limitations to Obtaining History: No Limitations - Smoking History Smoking history: Current every day smoker Have you smoked in the past 12 months: Yes Aproximately how many cigarettes per day: 10 - Alcohol/Substance Use Hx Alcohol Use: Yes Admission ROS BHS - HPI Chief Complaint: alcohol withdrawal sx Allergies/Adverse Reactions: Allergies Allergy/AdvReac Type Severity Reaction Status Date / Time No Known Allergies Allergy Verified 09/25/16 01:08 History of Present Illness: Patient is a 44 yo, AA, homeless male with hx of alcohol dependence is here seeking inpatient detox d/t withdrawal symptoms. Patient reports he relapsed about one month ago after the of his spouse do to an overdose. PMHX: DM II, Hyperlipidemia and HTN non-compliant with medications. Psych: bipolar and schizophrenia. Denies suicidal / homicidal ideation. Patient reports longest period of sobriety was while he was in alf 2011 -2013. Denies hx of seizures or ETOH syncope. Reports last detox [facility] in 2017. Exam Limitations: No Limitations - Review of Systems Constitutional: Loss of Appetite, Changes in sleep, Weakness, Unintentional Wgt. Loss EENT: reports: No Symptoms Reported Respiratory: reports: No Symptoms reported Cardiac: reports: No Symptoms Reported GI: reports: Poor Appetite, Poor Fluid Intake : reports: No Symptoms Reported Musculoskeletal: reports: No Symptoms Reported Integumentary: reports: No Symptoms Reported Neuro: reports: Headache, Weakness Endocrine: reports: Increased Thirst, Change in Weight Hematology: reports: No Symptoms Reported Psychiatric: reports: Orientated x3, Anxious, Depressed Other Systems: Reviewed and Negative Patient History - Patient Medical History Hx Anemia: No Hx Asthma: No Hx Chronic Obstructive Pulmonary Disease (COPD): No Hx Cancer: No Hx Cardiac Disorders: No Hx Congestive Heart Failure: No Hx Hypertension: Yes (non-compliance ) Hx Hypercholesterolemia: Yes (non compliance) Hx Pacemaker: No HX Cerebrovascular Accident: No Hx Seizures: No Hx Dementia: No Hx Diabetes: Yes Hx Gastrointestinal Disorders: No Hx Liver Disease: No Hx Genitourinary Disorders: No Hx Sexually Transmitted Disorders: No Hx Renal Disease (ESRD): No Hx Thyroid Disease: No Hx Human Immunodeficiency Virus (HIV): No (last test 2018) Hx Hepatitis C: No Hx Depression: Yes Hx Suicide Attempt: No Hx Bipolar Disorder: No Hx Schizophrenia: Yes - Patient Surgical History Past Surgical History: No - PPD History Previous Implant?: Yes Documented Results: Negative w/proof Date: 09/27/16 Results: 0 PPD to be Administered?: Yes - Smoking Cessation Smoking history: Current every day smoker Have you smoked in the past 12 months: Yes Aproximately how many cigarettes per day: 10 Cigars Per Day: 0 Hx Chewing Tobacco Use: No Initiated information on smoking cessation: Yes 'Breaking Loose' booklet given: 02/13/20 - Substance & Tx. History Hx Alcohol Use: Yes Hx Substance Use: Yes Substance Use Type: Alcohol, Marijuana Hx Substance Use Treatment: Yes ([facility] 2016) - Substances abused Alcohol Substance route: Oral Frequency: Daily Amount used: 1 gallon [place] Age of first use: 16 Date of last use: 02/13/20 Cocaine Substance route: Inhalation Amount used: 3 gram Age of first use: 24 Date of last use: 02/12/20 Marijuana/Hashish Substance route: Smoking Frequency: Daily Amount used: 10 blunts Age of first use: 12 Date of last use: 02/12/20 Admission Physical Exam BHS - Physical General Appearance: Yes: Appropriately Dressed, Mild Distress, Thin, Anxious HEENTM: Yes: EOMI, Hearing grossly Normal, Normal ENT Inspection, Normocephalic, Normal Voice, LUÍS, Pharynx Normal, Tm's normal Respiratory: Yes: Within Normal Limits Neck: Yes: Within Normal Limits Breast: Yes: Breast Exam Deferred Cardiology: Yes: Regular Rhythm, Regular Rate Abdominal: Yes: Normal Bowel Sounds, Non Tender, Flat, Soft Genitourinary: Yes: Within Normal Limits Back: Yes: Within Normal Limits, Normal Inspection Extremities: Yes: Normal Capillary Refill, Normal Inspection, Normal Range of Motion, Non-Tender Neurological: Yes: ed special education teacher II-XII NML intact, Fully Oriented, Alert, Motor Strength 5/5, Depressed Affect Integumentary: Yes: Normal Color, Warm, Moist Lymphatic: Yes: Within Normal Limits - Diagnostic (1) Homeless Current Visit: Yes Status: Acute (2) Alcohol dependence with uncomplicated withdrawal Current Visit: Yes Status: Acute (3) Cocaine dependence, uncomplicated Current Visit: Yes Status: Acute (4) Diabetes mellitus Current Visit: Yes Status: Chronic Qualifiers: Diabetes mellitus type: type 2 (5) Essential hypertension Current Visit: Yes Status: Chronic (6) Hypercholesterolemia Current Visit: Yes Status: Chronic (7) Nicotine dependence Current Visit: Yes Status: Chronic Qualifiers: Nicotine product type: cigarettes Substance use status: uncomplicated Qualified Code(s): F17.210 - Nicotine dependence, cigarettes, uncomplicated Cleared for Admission S - Detox or Rehab [facility] Level of Care: Medically Managed Detox Regimen/Protocol: Librium Urine Drug Screen - Results Urine drug screen results: THC-Marijuana, SADE-Cocaine Inpatient Rehab Admission - Rehab Decision to Admit Inpatient rehab admission?: No
[2020-02-13 19:02] VITALS: BMI 25.4
[2020-02-13] MEDS ORDERED: hydrOXYzine PAMOATE 25 MG CAPSULE (FP) PO PRN (19:09)
[2020-02-13] MEDS ORDERED: MAGNESIUM CITRATE 300 ML BOTTLE PO PRN (19:09)
[2020-02-13] MEDS ORDERED: MENTHOL/PHENOL 1 EACH UD MM PRN (19:09)
[2020-02-13] MEDS ORDERED: METHOCARBAMOL 500 MG TABLET PO PRN (19:09)
[2020-02-13] MEDS ORDERED: BISMUTH SUBSALICYLATE 524 MG/30 ML UD PO PRN (19:09)
[2020-02-13] MEDS ORDERED: NICOTINE POLACRILEX 2 MG GUM BUC PRN (19:09)
[2020-02-13] MEDS ORDERED: chlordiazePOXIDE HCL 10 MG CAPSULE PO PRN (19:09)
[2020-02-13] MEDS ORDERED: MAG HYDROX/AL HYDROX/SIMETH 30 ML UNIT-DOSE CUP PO PRN (19:09)
[2020-02-13] MEDS ORDERED: IBUPROFEN 400 MG TABLET (FP) PO PRN (19:09)
[2020-02-13] MEDS ORDERED: MAGNESIUM HYDROX 2400MG/30ML ORAL SUSPENSION 30 ML CUP PO PRN (19:09)
[2020-02-13] MEDS ORDERED: ONDANSETRON *ODT* 4 MG TABLET SL ONE (19:09)
[2020-02-13] MEDS: THIAMINE HCL 100 MG TABLET (FP) PO SCH (22:10)
[2020-02-13] MEDS: chlordiazePOXIDE HCL 25 MG CAPSULE PO SCH (22:11)
[2020-02-13] MEDS: MELATONIN 5 MG TABLETS PO SCH (22:12)
[2020-02-14] MEDS: chlordiazePOXIDE HCL 25 MG CAPSULE PO SCH ×3 (05:36→21:50)
[2020-02-14] MEDS: INSULIN SLIDING SCALE (NOVOLOG) 1 VIAL SQ SCH ×2 (06:49→17:22)
[2020-02-14] MEDS: PRENATAL VITAMINS W/ FOLIC ACID TABLET (FP) PO SCH (10:03)
[2020-02-14] MEDS: NICOTINE 7 MG/24 HOURS TOPICAL PATCH TD SCH (10:04)
[2020-02-14 10:11] LABS: HEMATOCRIT 43.5 % (35.4-49); HEMOGLOBIN 14.3 GM/dL (11.7-16.9); MCH 30.6 pg (25.7-33.7); MEAN CELL VOLUME 92.7 fl (80-96); MEAN PLT VOLUME 10.7 fl (7.5-11.1); PLATELET COUNT 255 K/MM3 (134-434); RBC 4.69 M/mm3 (4.00-5.60); RDW 15.1 % (11.9-15.9); WHITE BLOOD COUNT 8.1 K/mm3 (4.0-10.0)
[2020-02-14 10:29] LABS: ALBUMIN 3.1 g/dl (3.4-5.0); BLOOD UREA NITROGEN 17.2 mg/dL (7-18); CALCIUM 9.3 mg/dL (8.5-10.1); POTASSIUM 4.2 mmol/L (3.5-5.1)
[2020-02-14 10:34] LABS: BILIRUBIN,TOTAL 0.3 mg/dL (0.2-1); CREATININE 1.4 mg/dL (0.55-1.3); TOT PROT 7.4 g/dl (6.4-8.2)
--- NOTE | 2020-02-14 10:52 | PN ---
S CIWA - CIWA Score Nausea/Vomitin-No Nausea/No Vomiting Muscle Tremors: 2 Anxiety: 3 Agitation: 0-Normal Activity Paroxysmal Sweats: 3 Orientation: 0-Oriented Tacttile Disturbances: 0-None Auditory Disturbances: 0-None Visual Disturbances: 0-None Headache: 2-Mild CIWA-Ar Total Score: 10 BHS Progress Note (SOAP) Subjective: c/o sweats, anxiety, and shakes, headache. Objective: 02/14/20 10:51 Vital Signs 02/14/20 02/14/20 06:31 09:34 Temperature 97.7 F 97.7 F Pulse Rate 87 73 Respiratory 18 18 Rate Blood Pressure 145/84 101/63 O2 Sat by Pulse 97 97 Oximetry (%) Laboratory Last Values WBC 8.1 K/mm3 (4.0-10.0) 02/14/20 07:25 RBC 4.69 M/mm3 (4.00-5.60) 02/14/20 07:25 Hgb 14.3 GM/dL (11.7-16.9) 02/14/20 07:25 Hct 43.5 % (35.4-49) 02/14/20 07:25 MCV 92.7 fl (80-96) 02/14/20 07:25 MCH 30.6 pg (25.7-33.7) 02/14/20 07:25 MCHC 33.0 g/dl (32.0-35.9) 02/14/20 07:25 RDW 15.1 % (11.9-15.9) 02/14/20 07:25 Plt Count 255 K/MM3 (134-434) D 02/14/20 07:25 MPV 10.7 fl (7.5-11.1) 02/14/20 07:25 Sodium 141 mmol/L (136-145) 02/14/20 07:25 Potassium 4.2 mmol/L (3.5-5.1) 02/14/20 07:25 Chloride 106 mmol/L (98-107) 02/14/20 07:25 Carbon Dioxide 28 mmol/L (21-32) 02/14/20 07:25 Anion Gap 7 MMOL/L (8-16) L 02/14/20 07:25 BUN 17.2 mg/dL (7-18) 02/14/20 07:25 Creatinine 1.4 mg/dL (0.55-1.3) H 02/14/20 07:25 Est GFR (CKD-EPI)AfAm 69.34 02/14/20 07:25 Est GFR (CKD-EPI)NonAf 59.83 02/14/20 07:25 POC Glucometer 190 UNITS (80-120) 02/14/20 05:35 Random Glucose 205 mg/dL (74-106) H 02/14/20 07:25 Calcium 9.3 mg/dL (8.5-10.1) 02/14/20 07:25 Total Bilirubin 0.3 mg/dL (0.2-1) 02/14/20 07:25 AST 18 U/L (15-37) 02/14/20 07:25 ALT 18 U/L (13-61) 02/14/20 07:25 Alkaline Phosphatase 70 U/L (45-117) 02/14/20 07:25 Total Protein 7.4 g/dl (6.4-8.2) 02/14/20 07:25 Albumin 3.1 g/dl (3.4-5.0) L 02/14/20 07:25 Syphilis Serology Non-reactive (NONREACTIVE) 02/14/20 07:25 Labs noted. Assessment: 02/14/20 10:52 AOX3, in no acute respiratory distress. Full ROM, ambulating in the unit. Withdrawal symptoms. Plan: continue detox.
--- NOTE | 2020-02-14 15:00 | EKG ---
Test Reason : Blood Pressure : / mmHG Vent. Rate : 091 BPM Atrial Rate : 091 BPM P-R Int : 170 ms QRS Dur : 072 ms QT Int : 364 ms P-R-T Axes : 058 047 071 degrees QTc Int : 447 ms NORMAL SINUS RHYTHM MODERATE VOLTAGE CRITERIA FOR LVH, MAY BE NORMAL VARIANT BORDERLINE ECG WHEN COMPARED WITH ECG OF 25-SEP-2016 08:40, NO SIGNIFICANT CHANGE WAS FOUND Confirmed by Hira Freedman ([id number]) on 02/14/2020 3:00:00 PM Referred By: Jc Jimenez Confirmed By:Hira Freedman
--- NOTE | 2020-02-14 15:30 | CONSULT ---
[facility] Psychiatric Consult - Data Date of interview: 02/14/20 Admission source: [facility] Identifying data: Readmisssion to [address] for this 44 y/o AA male self-referred for detoxification treatment. [place] issues : alcohol, cocaine, marijuana, nicotine. Patient is (as per self-report : a week ago from drug overdose), father of one (claimed four dependents at a previous encounter with board writer), homeless, currently unemployed (recently laid off and s [employer] unemployment benefits) and supported on undisclosed means. Substance Abuse History: Discussed with the patient. WINSTON profile as follows : Smoking history: Current every day smoker. Have you smoked in the past 12 months: Yes. Approximately how many cigarettes per day: 10. Cigars Per Day: 0. Hx Chewing Tobacco Use: No. Initiated information on smoking cessation: Yes. 'Breaking Loose' booklet given: 02/13/20. - Substance & Tx. History. Hx Alcohol Use: Yes. Hx Substance Use: Yes. Substance Use Type: Alcohol, Marijuana. Hx Substance Use Treatment: Yes ([facility] 2016). - Substances abused. Alcohol. Substance route: Oral. Frequency: Daily. Amount used: 1 gallon [place]. Age of first use: 16. Date of last use: 02/13/20. Cocaine. Substance route: Inhalation. Amount used: 3 gram. Age of first use: 24. Date of last use: 02/12/20. Marijuana/Hashish. Substance route: Smoking. Frequency: Daily. Amount used: 10 blunts. Age of first use: 12. Date of last use: 02/12/20. History of multiple WINSTON treatment failures. Medical History: Medical profile is remarkable for hypertension, dyslipidemia and diabetes mellitus. No known allergies. Psychiatric History: Patient denies history of psychiatric hospitalizations, OPD care or suicide attempts. Physical/Sexual Abuse/Trauma History: Trauma : recent of from a drug overdose (self-report). Additional Comment: Urine drug screen results: THC-Marijuana, SADE-Cocaine. Noted. Mental Status Exam - Mental Status Exam Alert and Oriented to: Time, Place, Person Cognitive Function: Good Patient Appearance: Well Groomed (short stature) Mood: Hopeful Affect: Appropriate, Normal Range Patient Behavior: Inappropriate (patient exhibits a casual attitude which is odd in view of the recent of ), Passive, Cooperative Speech Pattern: Clear Voice Loudness: Normal Thought Process: Goal Oriented Thought Disorder: Not Present Hallucinations: Denies Suicidal Ideation: Denies Homicidal Ideation: Denies Insight/Judgement: Poor Sleep: Well Appetite: Good Gait/Station: Normal Psychiatric Findings - Problem List ([place] 1, 2,3) (1) Alcohol dependence with uncomplicated withdrawal Status: Acute (2) Cannabis dependence Status: Chronic (3) Cocaine dependence Status: Chronic (4) Nicotine dependence Status: Acute Qualifiers: Nicotine product type: cigarettes Substance use status: in withdrawal Qualified Code(s): F17.213 - Nicotine dependence, cigarettes, with withdrawal - Initial Treatment Plan Initial Treatment Plan: Psychoeducation. Empathy provided. Sleep hygiene. Detoxification in progress. Observation.
[2020-02-14] MEDS: THIAMINE HCL 100 MG TABLET (FP) PO SCH (22:09)
[2020-02-14] MEDS: MELATONIN 5 MG TABLETS PO SCH (22:09)
[2020-02-15] MEDS: chlordiazePOXIDE 5 MG CAPSULE PO SCH ×3 (06:14→23:35)
[2020-02-15] MEDS: INSULIN SLIDING SCALE (NOVOLOG) 1 VIAL SQ SCH ×2 (06:17→17:15)
[2020-02-15] MEDS ORDERED: INSULIN SLIDING SCALE (NOVOLOG) 1 VIAL SQ ONE (06:17)
[2020-02-15] MEDS: NICOTINE 7 MG/24 HOURS TOPICAL PATCH TD SCH (10:30)
[2020-02-15] MEDS: PRENATAL VITAMINS W/ FOLIC ACID TABLET (FP) PO SCH (10:30)
--- NOTE | 2020-02-15 11:25 | PN ---
S CIWA - CIWA Score Nausea/Vomitin-Mild Nausea/No Vomiting Muscle Tremors: 2 Anxiety: 2 Agitation: 0-Normal Activity Paroxysmal Sweats: No Perspiration Orientation: 0-Oriented Tacttile Disturbances: 1-Very Mild Itch/Numbness Auditory Disturbances: 0-None Visual Disturbances: 0-None Headache: 1-Very Mild CIWA-Ar Total Score: 7 BHS Progress Note (SOAP) Subjective: 44 years old male was admitted on 02/13/20 for alcohol withdrawal sx management treating with librium detox regiment reports right and left lower tooth cracked and trouble chewing due to pain right and left lower gum swelling redness no exudates no bleed amoxicillin 500 mg po bid x 3 days chlorohexdine mouth rinse tid encourage mr martini to visit clay digger and dentist and template clerk at least once a year due to diabetes Objective: 02/15/20 11:55 Vital Signs - 24 hr 02/14/20 02/14/20 02/14/20 13:19 16:34 20:30 Temperature 96.9 F L 97.7 F 97.7 F Pulse Rate 81 81 88 Respiratory 16 85 H 18 Rate Blood Pressure 140/76 129/73 125/77 O2 Sat by Pulse 97 97 100 Oximetry (%) 02/15/20 02/15/20 06:20 08:38 Temperature 97.6 F 97.4 F L Pulse Rate 87 64 Respiratory 18 18 Rate Blood Pressure 153/83 124/73 O2 Sat by Pulse 100 100 Oximetry (%) Laboratory Tests 02/13/20 02/13/20 02/14/20 20:45 22:17 05:35 WBC RBC Hgb Hct MCV MCH MCHC RDW Plt Count MPV Sodium Potassium Chloride Carbon Dioxide Anion Gap BUN Creatinine Est GFR (CKD-EPI)AfAm Est GFR (CKD-EPI)NonAf POC Glucometer 138 190 Random Glucose Calcium Total Bilirubin AST ALT Alkaline Phosphatase Total Protein Albumin Syphilis Serology COVID-19 (DARYL) Not detected 02/14/20 02/14/20 02/14/20 07:25 07:25 07:25 WBC 8.1 RBC 4.69 Hgb 14.3 Hct 43.5 MCV 92.7 MCH 30.6 MCHC 33.0 RDW 15.1 Plt Count 255 D MPV 10.7 Sodium 141 Potassium 4.2 Chloride 106 Carbon Dioxide 28 Anion Gap 7 L BUN 17.2 Creatinine 1.4 H Est GFR (CKD-EPI)AfAm 69.34 Est GFR (CKD-EPI)NonAf 59.83 POC Glucometer Random Glucose 205 H Calcium 9.3 Total Bilirubin 0.3 AST 18 ALT 18 Alkaline Phosphatase 70 Total Protein 7.4 Albumin 3.1 L Syphilis Serology Non-reactive COVID-19 (DARYL) 02/14/20 02/15/20 17:05 06:13 WBC RBC Hgb Hct MCV MCH MCHC RDW Plt Count MPV Sodium Potassium Chloride Carbon Dioxide Anion Gap BUN Creatinine Est GFR (CKD-EPI)AfAm Est GFR (CKD-EPI)NonAf POC Glucometer 199 169 Random Glucose Calcium Total Bilirubin AST ALT Alkaline Phosphatase Total Protein Albumin Syphilis Serology COVID-19 (DARYL) glucose elevation due to long history of diabetes 02/15/20 12:00 treated with metformin 1000mg po bidac resume metformin and diabeta 5 mg po bid resume aspirin, 02/15/20 12:01 02/15/20 12:02 bp elevation resume enalapril 10 mg po bid Assessment: 02/15/20 12:03 alcohol withdrawal hypertension insulin dependent diabetes due to bgm within acceptable range hold insulin 15 units daily will contact pharmacy when open Plan: librium regiment
[2020-02-15] MEDS: ASPIRIN 81 MG CHEWABLE TABLETS PO SCH (13:13)
[2020-02-15] MEDS: CLOTRIMAZOLE 1% CREAM 15 GM TUBE TP SCH ×2 (15:09→23:36)
[2020-02-15] MEDS: CHLORHEXIDINE GLUCONATE 0.12% 15ML CUP MM SCH ×2 (15:11→23:36)
[2020-02-15] MEDS: AMOXICILLIN 500 MG CAPSULE (FP) PO SCH ×2 (15:23→23:35)
[2020-02-15] MEDS ORDERED: cloNIDine HCL 0.1 MG TABLET PO PRN (15:33)
[2020-02-15] MEDS ORDERED: ENALAPRIL MALEATE 10 MG TABLET (FP) PO ONE (15:45)
[2020-02-15] MEDS: glyBURIDE 5 MG TABLET PO SCH (17:15)
[2020-02-15] MEDS: metFORMIN HCL 500 MG TABLET (FP) PO SCH (17:16)
[2020-02-15] MEDS: ENALAPRIL MALEATE 10 MG TABLET (FP) PO SCH (23:36)
[2020-02-15] MEDS: THIAMINE HCL 100 MG TABLET (FP) PO SCH (23:37)
[2020-02-15] MEDS: MELATONIN 5 MG TABLETS PO SCH (23:37)
[2020-02-16] MEDS ORDERED: chlordiazePOXIDE HCL 10 MG CAPSULE PO PRN
[2020-02-16] MEDS: chlordiazePOXIDE HCL 10 MG CAPSULE PO SCH ×3 (05:46→22:05)
[2020-02-16] MEDS: CHLORHEXIDINE GLUCONATE 0.12% 15ML CUP MM SCH ×3 (05:46→22:09)
[2020-02-16] MEDS: glyBURIDE 5 MG TABLET PO SCH ×2 (06:46→16:35)
[2020-02-16] MEDS: metFORMIN HCL 500 MG TABLET (FP) PO SCH ×2 (06:46→16:35)
[2020-02-16] MEDS: INSULIN SLIDING SCALE (NOVOLOG) 1 VIAL SQ SCH ×2 (07:50→16:36)
[2020-02-16] MEDS: AMOXICILLIN 500 MG CAPSULE (FP) PO SCH ×2 (10:17→22:05)
[2020-02-16] MEDS: CLOTRIMAZOLE 1% CREAM 15 GM TUBE TP SCH ×2 (10:18→22:06)
[2020-02-16] MEDS: PRENATAL VITAMINS W/ FOLIC ACID TABLET (FP) PO SCH (10:18)
[2020-02-16] MEDS: ENALAPRIL MALEATE 10 MG TABLET (FP) PO SCH ×2 (10:18→22:06)
[2020-02-16] MEDS: ASPIRIN 81 MG CHEWABLE TABLETS PO SCH (10:18)
[2020-02-16] MEDS: NICOTINE 7 MG/24 HOURS TOPICAL PATCH TD SCH (10:19)
--- NOTE | 2020-02-16 11:30 | PN ---
S CIWA - CIWA Score Nausea/Vomitin-No Nausea/No Vomiting Muscle Tremors: 1-None Visible, but [place] Anxiety: 1-Mildly Anxious Agitation: 0-Normal Activity Paroxysmal Sweats: 1-Minimal Palms Moist Orientation: 0-Oriented Tacttile Disturbances: 1-Very Mild Itch/Numbness Auditory Disturbances: 0-None Visual Disturbances: 0-None Headache: 1-Very Mild CIWA-Ar Total Score: 5 BHS Progress Note (SOAP) Subjective: 44 years old male was admitted on 02/13/20 for alcohol withdrawal sx management treating with librum detox regiment feels better today less tremor mild anxiety discussing aftercare with staff mr martini agrees to follow up with [facility] for alcohol abuse treatment Objective: 02/16/20 11:31 Vital Signs - 24 hr 02/15/20 02/15/20 02/15/20 12:32 15:50 16:37 Temperature 96.8 F L 97.3 F L Pulse Rate 85 85 Respiratory 18 18 Rate Blood Pressure 144/85 152/92 139/78 O2 Sat by Pulse 100 Oximetry (%) 02/15/20 02/16/20 02/16/20 20:24 06:50 08:45 Temperature 97.3 F L 96.8 F L 97.6 F Pulse Rate 90 55 L 85 Respiratory 18 18 16 Rate Blood Pressure 127/78 132/75 144/74 O2 Sat by Pulse 100 97 Oximetry (%) Laboratory Tests 02/13/20 02/13/20 02/14/20 20:45 22:17 05:35 WBC RBC Hgb Hct MCV MCH MCHC RDW Plt Count MPV Sodium Potassium Chloride Carbon Dioxide Anion Gap BUN Creatinine Est GFR (CKD-EPI)AfAm Est GFR (CKD-EPI)NonAf POC Glucometer 138 190 Random Glucose Calcium Total Bilirubin AST ALT Alkaline Phosphatase Total Protein Albumin Syphilis Serology COVID-19 (DARYL) Not detected 02/14/20 02/14/20 02/14/20 07:25 07:25 07:25 WBC 8.1 RBC 4.69 Hgb 14.3 Hct 43.5 MCV 92.7 MCH 30.6 MCHC 33.0 RDW 15.1 Plt Count 255 D MPV 10.7 Sodium 141 Potassium 4.2 Chloride 106 Carbon Dioxide 28 Anion Gap 7 L BUN 17.2 Creatinine 1.4 H Est GFR (CKD-EPI)AfAm 69.34 Est GFR (CKD-EPI)NonAf 59.83 POC Glucometer Random Glucose 205 H Calcium 9.3 Total Bilirubin 0.3 AST 18 ALT 18 Alkaline Phosphatase 70 Total Protein 7.4 Albumin 3.1 L Syphilis Serology Non-reactive COVID-19 (DARYL) 02/14/20 02/15/20 02/15/20 17:05 06:13 11:58 WBC RBC Hgb Hct MCV MCH MCHC RDW Plt Count MPV Sodium Potassium Chloride Carbon Dioxide Anion Gap BUN Creatinine Est GFR (CKD-EPI)AfAm Est GFR (CKD-EPI)NonAf POC Glucometer 199 169 191 Random Glucose Calcium Total Bilirubin AST ALT Alkaline Phosphatase Total Protein Albumin Syphilis Serology COVID-19 (DARYL) 02/15/20 02/16/20 16:31 05:48 WBC RBC Hgb Hct MCV MCH MCHC RDW Plt Count MPV Sodium Potassium Chloride Carbon Dioxide Anion Gap BUN Creatinine Est GFR (CKD-EPI)AfAm Est GFR (CKD-EPI)NonAf POC Glucometer 297 217 Random Glucose Calcium Total Bilirubin AST ALT Alkaline Phosphatase Total Protein Albumin Syphilis Serology COVID-19 (DARYL) 02/16/20 11:32 health teaching on risks of uncontrolled diabetes Assessment: 02/16/20 11:32 alcohol withdrawal Plan: librium regiment
[2020-02-16] MEDS: THIAMINE HCL 100 MG TABLET (FP) PO SCH (22:05)
[2020-02-16] MEDS: MELATONIN 5 MG TABLETS PO SCH (22:06)
[2020-02-17] MEDS ORDERED: chlordiazePOXIDE HCL 10 MG CAPSULE PO ONE (05:00)
[2020-02-17] MEDS: glyBURIDE 5 MG TABLET PO SCH (06:35)
[2020-02-17] MEDS: INSULIN SLIDING SCALE (NOVOLOG) 1 VIAL SQ SCH (06:35)
[2020-02-17] MEDS: metFORMIN HCL 500 MG TABLET (FP) PO SCH (06:36)
[2020-02-17] MEDS: CHLORHEXIDINE GLUCONATE 0.12% 15ML CUP MM SCH (07:11)
[2020-02-17 09:12] VITALS: BP 119/86; PULSE 95; TEMP 97.1
[2020-02-17] MEDS: AMOXICILLIN 500 MG CAPSULE (FP) PO SCH (10:11)
[2020-02-17] MEDS: PRENATAL VITAMINS W/ FOLIC ACID TABLET (FP) PO SCH (10:11)
[2020-02-17] MEDS: ENALAPRIL MALEATE 10 MG TABLET (FP) PO SCH (10:12)
[2020-02-17] MEDS: CLOTRIMAZOLE 1% CREAM 15 GM TUBE TP SCH (10:12)
[2020-02-17] MEDS: ASPIRIN 81 MG CHEWABLE TABLETS PO SCH (10:12)
[2020-02-17] MEDS: NICOTINE 7 MG/24 HOURS TOPICAL PATCH TD SCH (10:13)
--- NOTE | 2020-02-17 11:23 | DS ---
[facility] Detox Discharge Summary Admission Date: 02/13/20 Discharge Date: 02/17/20 - History Present History: Alcohol Dependence Additional Comments: 44 years old male was admitted on 02/13/20 for alcohol withdrawal sx management treated with librium detox regiment seen by psychiatrist no medical intervention mr martini has completed librium regiment and is tolerated well General Appearance: Yes: Appropriately Dressed, no Distress, Thin, mild Anxious HEENTM: Yes: EOMI, Hearing grossly Normal, Normal ENT Inspection, Normocephalic, Normal Voice, LUÍS, Pharynx Normal, Tm's normal Respiratory: Yes: Within Normal Limits Neck: Yes: Within Normal Limits Breast: Yes: Breast Exam Deferred Cardiology: Yes: Regular Rhythm, Regular Rate Abdominal: Yes: Normal Bowel Sounds, Non Tender, Flat, Soft Genitourinary: Yes: Within Normal Limits Back: Yes: Within Normal Limits, Normal Inspection Extremities: Yes: Normal Capillary Refill, Normal Inspection, Normal Range of Motion, Non-Tender Neurological: Yes: project inspector II-XII NML intact, Fully Oriented, Alert, Motor Strength 5/5, Depressed Affect Integumentary: Yes: Normal Color, Warm, Moist Lymphatic: Yes: Within Normal Limits Pertinent Past History: time for discharge 49 minutes transferred order set from detox to rehab - Physical Exam Results Vital Signs: Vital Signs Temperature 97.1 F L 02/17/20 08:37 Pulse Rate 95 H 02/17/20 08:37 Respiratory Rate 18 02/17/20 08:37 Blood Pressure 119/86 02/17/20 08:37 O2 Sat by Pulse Oximetry (%) 99 02/17/20 05:31 Pertinent Admission Physical Exam Findings: alcohol withdrawal Vital Signs - 24 hr 02/16/20 02/16/20 02/16/20 12:44 16:29 20:42 Temperature 97.1 F L 97.3 F L 97.5 F L Pulse Rate 84 84 87 Respiratory 16 18 16 Rate Blood Pressure 133/77 139/82 138/84 O2 Sat by Pulse 100 99 Oximetry (%) 02/17/20 02/17/20 05:31 08:37 Temperature 97.5 F L 97.1 F L Pulse Rate 93 H 95 H Respiratory 18 18 Rate Blood Pressure 146/93 119/86 O2 Sat by Pulse 99 Oximetry (%) Laboratory Tests 02/13/20 02/13/20 02/14/20 20:45 22:17 05:35 WBC RBC Hgb Hct MCV MCH MCHC RDW Plt Count MPV Sodium Potassium Chloride Carbon Dioxide Anion Gap BUN Creatinine Est GFR (CKD-EPI)AfAm Est GFR (CKD-EPI)NonAf POC Glucometer 138 190 Random Glucose Calcium Total Bilirubin AST ALT Alkaline Phosphatase Total Protein Albumin Syphilis Serology COVID-19 (DARYL) Not detected 02/14/20 02/14/20 02/14/20 07:25 07:25 07:25 WBC 8.1 RBC 4.69 Hgb 14.3 Hct 43.5 MCV 92.7 MCH 30.6 MCHC 33.0 RDW 15.1 Plt Count 255 D MPV 10.7 Sodium 141 Potassium 4.2 Chloride 106 Carbon Dioxide 28 Anion Gap 7 L BUN 17.2 Creatinine 1.4 H Est GFR (CKD-EPI)AfAm 69.34 Est GFR (CKD-EPI)NonAf 59.83 POC Glucometer Random Glucose 205 H Calcium 9.3 Total Bilirubin 0.3 AST 18 ALT 18 Alkaline Phosphatase 70 Total Protein 7.4 Albumin 3.1 L Syphilis Serology Non-reactive COVID-19 (DARYL) 02/14/20 02/15/20 02/15/20 17:05 06:13 11:58 WBC RBC Hgb Hct MCV MCH MCHC RDW Plt Count MPV Sodium Potassium Chloride Carbon Dioxide Anion Gap BUN Creatinine Est GFR (CKD-EPI)AfAm Est GFR (CKD-EPI)NonAf POC Glucometer 199 169 191 Random Glucose Calcium Total Bilirubin AST ALT Alkaline Phosphatase Total Protein Albumin Syphilis Serology COVID-19 (DARYL) 02/15/20 02/16/20 02/16/20 16:31 05:48 16:27 WBC RBC Hgb Hct MCV MCH MCHC RDW Plt Count MPV Sodium Potassium Chloride Carbon Dioxide Anion Gap BUN Creatinine Est GFR (CKD-EPI)AfAm Est GFR (CKD-EPI)NonAf POC Glucometer 297 217 224 Random Glucose Calcium Total Bilirubin AST ALT Alkaline Phosphatase Total Protein Albumin Syphilis Serology COVID-19 (DARYL) 02/17/20 05:40 WBC RBC Hgb Hct MCV MCH MCHC RDW Plt Count MPV Sodium Potassium Chloride Carbon Dioxide Anion Gap BUN Creatinine Est GFR (CKD-EPI)AfAm Est GFR (CKD-EPI)NonAf POC Glucometer 211 Random Glucose Calcium Total Bilirubin AST ALT Alkaline Phosphatase Total Protein Albumin Syphilis Serology COVID-19 (DARYL) moderate glucose controlled diabetes - Treatment Hospital Course: Detox Protocol Followed, Detoxed Safely, Responded well, Discharged Condition Good, Rehab Referral Accepted Patient has Accepted a Rehab Referral to: [facility] primary care out patient clinic - Medication Discharge Medications: Ambulatory Orders Aspirin [ASA -] 81 mg PO DAILY #30 mg 09/28/16 Atorvastatin Ca [Lipitor] 80 mg PO HS #30 mg 09/28/16 Enalapril Maleate [Vasotec -] 10 mg PO BID #60 mg 09/28/16 Glyburide [Micronase -] 5 mg PO BID #60 mg 09/28/16 Insulin (Novolog) [Novolog Flexpen -] 0 units SQ ACHS #1 ml 09/28/16 Insulin Glargine,Hum.rec.anlog [Lantus Solostar PEN -] 15 units SQ HS #1 ml 09/28/16 Loratadine [Claritin -] 10 mg PO DAILY #30 mg 09/28/16 Metformin HCl [Glucophage] 1,000 mg PO BIDAC #60 mg 09/28/16 - Diagnosis (1) Alcohol dependence with uncomplicated withdrawal Current Visit: Yes Status: Acute (2) Diabetes mellitus Current Visit: Yes Status: Chronic Qualifiers: Diabetes mellitus type: type 2 Diabetes mellitus intermediate insulin use: with intermediate use Diabetes mellitus complication status: without complication Qualified Code(s): E11.9 - Type 2 diabetes mellitus without complications; Z79.4 - longterm (current) use of insulin (3) Essential hypertension Current Visit: Yes Status: Chronic (4) Nicotine dependence Current Visit: Yes Status: Acute Qualifiers: Nicotine product type: cigarettes Substance use status: in withdrawal Qualified Code(s): F17.213 - Nicotine dependence, cigarettes, with withdrawal (5) Hypertension Current Visit: Yes Status: Chronic Qualifiers: Hypertension type: essential hypertension Qualified Code(s): I10 - Essential (primary) hypertension - AMA Did Patient Leave Against Medical Advice: No CIWA Score - CIWA Score Nausea/Vomitin-No Nausea/No Vomiting Muscle Tremors: 1-None Visible, but [place] Anxiety: 1-Mildly Anxious Agitation: 0-Normal Activity Paroxysmal Sweats: No Perspiration Orientation: 0-Oriented Tacttile Disturbances: 0-None Auditory Disturbances: 0-None Visual Disturbances: 0-None Headache: 0-None Present CIWA-Ar Total Score: 2
== END 2020-02-17 11:59 | disposition other institution (70) | DRG 774 ==
LOC: YASAS 17:06 → Y3N 20:01
PROVIDERS: ADMIT Allergy & Immunology; ATTEND Allergy & Immunology
PROC: HZ2ZZZZ Detoxification Services for Substance Abuse Treatment (ICD-10-PCS; principal; 2020-02-13)
DX: F10.230 Alcohol dependence with withdrawal, uncomplicated (principal); F14.20 Cocaine dependence, uncomplicated; F12.20 Cannabis dependence, uncomplicated; F17.210 Nicotine dependence, cigarettes, uncomplicated; F20.9 Schizophrenia, unspecified; F31.9 Bipolar disorder, unspecified; I10 Essential (primary) hypertension; E78.5 Hyperlipidemia, unspecified; E11.9 Type 2 diabetes mellitus without complications; Z79.4 Long term (current) use of insulin; Z56.0 Unemployment, unspecified; Z59.0 Homelessness
CPT/HCPCS: 36415; 80053; 82962; 85027; 86780; 87389; 93005; 93010; Q0162; U0003

== ENCOUNTER 2020-02-17 11:57 | Inpatient (IN) | payer OTHER ==
--- NOTE | 2020-02-17 11:27 | HP ---
RADHA LANTIGUA Rehab Assess/Revision - Admission History Admitted to Rehab from: [facility] Date of Admission to Rehab: 02/17/20 - Findings Detox History & Physical reviewed: Yes Concur with findings: Yes Comments/Additional Findings: transferred from detox to rehab admission as per protocol Inpatient Rehab Admission - Rehab Decision to Admit Inpatient rehab admission?: Yes - Initial Determination Are CD services needed?: Yes Free of communicable disease: Yes Not in need of hospitalization: Yes - Rehab Admission Criteria Previous failed treatment: Yes Poor recovery environment: Yes Comorbidities: Yes Lacks judgement: Yes Patient is meeting Inpatient Rehab admission criteria:: Yes
[~2020-02-17 11:57] MED LIST: LOPERAMIDE HCL 2 MG CAPSULE PO PRN; MAG HYDROX/AL HYDROX/SIMETH 30 ML UNIT-DOSE CUP PO PRN; MAGNESIUM CITRATE 300 ML BOTTLE PO PRN; MAGNESIUM HYDROX 2400MG/30ML ORAL SUSPENSION 30 ML CUP PO PRN; NICOTINE POLACRILEX 2 MG GUM BC PRN; P-EPHED 60MG/TRIPROLIDI 2.5MG TABLET PO PRN; guaiFENesin 200 MG/10 ML 10 ML UNIT-DOSE CUPS PO PRN
--- NOTE | 2020-02-17 12:52 | CONSULT ---
[facility] Psychiatric Consult - Data Date of interview: 02/17/20 Admission source: Transfer from [address] [place] [address]. Identifying data: Detoxification completed at [address] [place] [address]. Admission to [address] for this 44 y/o AA male seeking preservation of sobriety (WINSTON issues : alcohol, cocaine, marijuana, nicotine) and management of mood disorder (suspected) + chronic insomnia. Patient is (as per self-report : a week ago from drug overdose), father of one (claimed four dependents at a previous encounter with automobile and property underwriter), homeless, currently unemployed (recently laid off and seeking unemployment benefits) and supported on undisclosed means. Substance Abuse History: Discussed with the patient. WINSTON profile as follows : Smoking history: Current every day smoker. Have you smoked in the past 12 months: Yes. Approximately how many cigarettes per day: 10. Cigars Per Day: 0. Hx Chewing Tobacco Use: No. Initiated information on smoking cessation: Yes. 'Breaking Loose' booklet given: 02/13/20. - Substance & Tx. History. Hx Alcohol Use: Yes. Hx Substance Use: Yes. Substance Use Type: Alcohol, Marijuana. Hx Substance Use Treatment: Yes ([facility] 2017). - Substances abused. Alcohol. Substance route: Oral. Frequency: Daily. Amount used: 1 gallon [place]. Age of first use: 16. Date of last use: 02/13/20. Cocaine. Substance route: Inhalation. Amount used: 3 gram. Age of first use: 24. Date of last use: 02/12/20. Marijuana/Hashish. Substance route: Smoking. Frequency: Daily. Amount used: 10 blunts. Age of first use: 12. Date of last use: 02/12/20. History of multiple WINSTON treatment failures. Medical History: Medical profile is remarkable for hypertension, dyslipidemia and diabetes mellitus. No known allergies. Psychiatric History: Patient denies history of psychiatric hospitalizations, OPD care or suicide attempts. Physical/Sexual Abuse/Trauma History: Trauma : recent of from a drug overdose (self-report). Additional Comment: Urine drug screen results: THC-Marijuana, SADE-Cocaine. Noted. Mental Status Exam - Mental Status Exam Alert and Oriented to: Time, Place, Person Cognitive Function: Good Patient Appearance: Well Groomed Mood: Sad, Nervous, Withdrawn Affect: Mood Congruent, Constricted Patient Behavior: Fatigued, Appropriate, Cooperative Speech Pattern: Clear, Appropriate Voice Loudness: Normal Thought Process: Intact, Goal Oriented Thought Disorder: Not Present Hallucinations: Denies Suicidal Ideation: Denies Homicidal Ideation: Denies Insight/Judgement: Fair Sleep: Poorly, Difficulty falling asleep Appetite: Good Gait/Station: Normal Psychiatric Findings - Problem List ([place] 1, 2,3) (1) Bereavement Current Visit: Yes Status: Acute (2) Alcohol dependence Current Visit: Yes Status: Chronic (3) Nicotine dependence Current Visit: Yes Status: Chronic Qualifiers: Nicotine product type: cigarettes Substance use status: in withdrawal Qualified Code(s): F17.213 - Nicotine dependence, cigarettes, with withdrawal (4) Cannabis dependence Current Visit: Yes Status: Chronic (5) Cocaine dependence Current Visit: Yes Status: Chronic (6) Drug-induced mood disorder Current Visit: Yes Status: Chronic (7) Insomnia Current Visit: Yes Status: Chronic - Initial Treatment Plan Initial Treatment Plan: Psychoeducation. Support and empathy provided to patient. Sleep hygiene. Trazodone 100 mg po hs. Ordered at patient's request. Side effects/benefits discussed (emphasis placed on potential for priapism). Consent (verbal) granted to MD. Cantu.
[2020-02-17] MEDS: CHLORHEXIDINE GLUCONATE 0.12% 15ML CUP MM SCH ×2 (15:02→18:58)
--- NOTE | 2020-02-17 15:51 | PN ---
[facility] Progress Note Note: Pt is a 44 y/o male admitted to rehab today from [address] [place] [address]. PMHX: DM II, Hyperlipidemia and HTN non-compliant with medications. Psych: bipolar and schizophrenia. Denies suicidal / homicidal ideation. Vital Signs - 24 hr 02/17/20 11:48 Temperature 97.1 F L Pulse Rate 82 Respiratory 18 Rate Blood Pressure 134/90 O2 Sat by Pulse 98 Oximetry (%) Aleert o x 3 nad oob ambulating with steady gait Extremities:Active FROM, all limbs, no edema. Skin:intact. Some dark discoloration of toes, dry discolored nails(hx foot fungus-requesting foot cream) s/p detox rehab admit increase po fluids Tinactin cream apply as directed
[2020-02-17] MEDS ORDERED: metFORMIN HCL 500 MG TABLET (FP) PO SCH (16:30)
[2020-02-17] MEDS ORDERED: INSULIN SLIDING SCALE (NOVOLOG) 1 VIAL SQ SCH (16:30)
[2020-02-17] MEDS: metFORMIN HCL 500 MG TABLET (FP) PO SCH (16:37)
[2020-02-17] MEDS: INSULIN SLIDING SCALE (NOVOLOG) 1 VIAL SQ SCH (16:37)
[2020-02-17] MEDS: glyBURIDE 5 MG TABLET PO SCH (16:37)
[2020-02-17] MEDS: MELATONIN 5 MG TABLETS PO SCH (21:34)
[2020-02-17] MEDS: traZODone HCL 100 MG TABLET (FP) PO SCH (21:34)
[2020-02-17] MEDS: AMOXICILLIN 500 MG CAPSULE (FP) PO SCH (21:34)
[2020-02-17] MEDS: THIAMINE HCL 100 MG TABLET (FP) PO SCH (21:34)
[2020-02-17] MEDS: CLOTRIMAZOLE 1% CREAM 15 GM TUBE TP SCH (21:35)
[2020-02-17] MEDS: TOLNAFTATE 1% CREAM 15 GM TUBE TP SCH (21:35)
[2020-02-17] MEDS: ENALAPRIL MALEATE 10 MG TABLET (FP) PO SCH (21:57)
[2020-02-18] MEDS: glyBURIDE 5 MG TABLET PO SCH ×2 (06:39→19:00)
[2020-02-18] MEDS ORDERED: INSULIN (NOVOLOG) ASPART 100 UNITS/ML 10ML VIAL ONE ×2 (06:41→16:55)
[2020-02-18] MEDS: INSULIN SLIDING SCALE (NOVOLOG) 1 VIAL SQ SCH ×2 (06:42→16:56)
[2020-02-18] MEDS: metFORMIN HCL 500 MG TABLET (FP) PO SCH ×2 (06:54→16:56)
[2020-02-18] MEDS: NICOTINE 7 MG/24 HOURS TOPICAL PATCH TD SCH (10:59)
[2020-02-18] MEDS: ENALAPRIL MALEATE 10 MG TABLET (FP) PO SCH ×2 (10:59→21:35)
[2020-02-18] MEDS: AMOXICILLIN 500 MG CAPSULE (FP) PO SCH ×2 (10:59→21:35)
[2020-02-18] MEDS: PRENATAL VITAMINS W/ FOLIC ACID TABLET (FP) PO SCH (10:59)
[2020-02-18] MEDS: ASPIRIN 81 MG CHEWABLE TABLETS PO SCH (10:59)
[2020-02-18] MEDS: CLOTRIMAZOLE 1% CREAM 15 GM TUBE TP SCH ×2 (11:00→21:35)
[2020-02-18] MEDS: TOLNAFTATE 1% CREAM 15 GM TUBE TP SCH ×2 (11:01→21:35)
[2020-02-18] MEDS: CHLORHEXIDINE GLUCONATE 0.12% 15ML CUP MM SCH ×2 (13:06→19:00)
[2020-02-18] MEDS: MELATONIN 5 MG TABLETS PO SCH (21:35)
[2020-02-18] MEDS: traZODone HCL 100 MG TABLET (FP) PO SCH (21:35)
[2020-02-18] MEDS: THIAMINE HCL 100 MG TABLET (FP) PO SCH (21:35)
[2020-02-19] MEDS: glyBURIDE 5 MG TABLET PO SCH ×2 (07:01→16:48)
[2020-02-19] MEDS: metFORMIN HCL 500 MG TABLET (FP) PO SCH ×2 (07:02→16:49)
[2020-02-19] MEDS ORDERED: INSULIN (NOVOLOG) ASPART 100 UNITS/ML 10ML VIAL ONE (07:30)
[2020-02-19] MEDS: INSULIN SLIDING SCALE (NOVOLOG) 1 VIAL SQ SCH ×2 (07:38→16:49)
[2020-02-19] MEDS: ASPIRIN 81 MG CHEWABLE TABLETS PO SCH (10:21)
[2020-02-19] MEDS: ENALAPRIL MALEATE 10 MG TABLET (FP) PO SCH ×2 (10:21→21:51)
[2020-02-19] MEDS: PRENATAL VITAMINS W/ FOLIC ACID TABLET (FP) PO SCH (10:21)
[2020-02-19] MEDS: NICOTINE 7 MG/24 HOURS TOPICAL PATCH TD SCH (10:21)
[2020-02-19] MEDS: CLOTRIMAZOLE 1% CREAM 15 GM TUBE TP SCH ×2 (10:22→21:52)
[2020-02-19] MEDS: TOLNAFTATE 1% CREAM 15 GM TUBE TP SCH ×2 (10:22→21:52)
[2020-02-19] MEDS: CHLORHEXIDINE GLUCONATE 0.12% 15ML CUP MM SCH ×2 (14:46→19:00)
[2020-02-19] MEDS: traZODone HCL 100 MG TABLET (FP) PO SCH (21:51)
[2020-02-19] MEDS: THIAMINE HCL 100 MG TABLET (FP) PO SCH (21:51)
[2020-02-19] MEDS: MELATONIN 5 MG TABLETS PO SCH (21:52)
[2020-02-20] MEDS: glyBURIDE 5 MG TABLET PO SCH ×2 (06:47→17:15)
[2020-02-20] MEDS: INSULIN SLIDING SCALE (NOVOLOG) 1 VIAL SQ SCH ×2 (06:48→17:12)
[2020-02-20] MEDS: metFORMIN HCL 500 MG TABLET (FP) PO SCH ×2 (06:48→17:16)
[2020-02-20] MEDS: ENALAPRIL MALEATE 10 MG TABLET (FP) PO SCH ×2 (10:32→21:48)
[2020-02-20] MEDS: TOLNAFTATE 1% CREAM 15 GM TUBE TP SCH ×2 (10:32→21:47)
[2020-02-20] MEDS: NICOTINE 7 MG/24 HOURS TOPICAL PATCH TD SCH (10:32)
[2020-02-20] MEDS: CLOTRIMAZOLE 1% CREAM 15 GM TUBE TP SCH ×2 (10:32→21:47)
[2020-02-20] MEDS: PRENATAL VITAMINS W/ FOLIC ACID TABLET (FP) PO SCH (10:32)
[2020-02-20] MEDS: ASPIRIN 81 MG CHEWABLE TABLETS PO SCH (10:32)
[2020-02-20] MEDS: IBUPROFEN 400 MG TABLET (FP) PO PRN (11:24)
[2020-02-20] MEDS: CHLORHEXIDINE GLUCONATE 0.12% 15ML CUP MM SCH ×3 (14:28→17:18)
[2020-02-20] MEDS: ACETAMINOPHEN 325 MG TABLET (FP) PO PRN (14:35)
[2020-02-20] MEDS: traZODone HCL 100 MG TABLET (FP) PO SCH (21:47)
[2020-02-20] MEDS: MELATONIN 5 MG TABLETS PO SCH (21:47)
[2020-02-20] MEDS: THIAMINE HCL 100 MG TABLET (FP) PO SCH (21:48)
[2020-02-21] MEDS: glyBURIDE 5 MG TABLET PO SCH ×2 (06:34→16:44)
[2020-02-21] MEDS: IBUPROFEN 400 MG TABLET (FP) PO PRN (06:36)
[2020-02-21] MEDS ORDERED: INSULIN (NOVOLOG) ASPART 100 UNITS/ML 10ML VIAL ONE (06:37)
[2020-02-21] MEDS: metFORMIN HCL 500 MG TABLET (FP) PO SCH ×2 (06:39→16:44)
[2020-02-21] MEDS: INSULIN SLIDING SCALE (NOVOLOG) 1 VIAL SQ SCH ×2 (06:54→16:44)
[2020-02-21] MEDS: PRENATAL VITAMINS W/ FOLIC ACID TABLET (FP) PO SCH (10:11)
[2020-02-21] MEDS: NICOTINE 7 MG/24 HOURS TOPICAL PATCH TD SCH (10:11)
[2020-02-21] MEDS: CLOTRIMAZOLE 1% CREAM 15 GM TUBE TP SCH ×2 (10:11→21:25)
[2020-02-21] MEDS: ASPIRIN 81 MG CHEWABLE TABLETS PO SCH (10:11)
[2020-02-21] MEDS: TOLNAFTATE 1% CREAM 15 GM TUBE TP SCH ×2 (10:12→21:25)
[2020-02-21] MEDS: ENALAPRIL MALEATE 10 MG TABLET (FP) PO SCH ×2 (10:12→21:25)
[2020-02-21] MEDS: ACETAMINOPHEN 325 MG TABLET (FP) PO PRN (10:15)
[2020-02-21] MEDS: CHLORHEXIDINE GLUCONATE 0.12% 15ML CUP MM SCH ×2 (14:34→17:58)
[2020-02-21] MEDS: traZODone HCL 100 MG TABLET (FP) PO SCH (21:25)
[2020-02-21] MEDS: MELATONIN 5 MG TABLETS PO SCH (21:25)
[2020-02-21] MEDS: THIAMINE HCL 100 MG TABLET (FP) PO SCH (21:25)
[2020-02-22] MEDS: glyBURIDE 5 MG TABLET PO SCH ×2 (06:44→16:19)
[2020-02-22] MEDS: INSULIN SLIDING SCALE (NOVOLOG) 1 VIAL SQ SCH ×2 (06:45→16:19)
[2020-02-22] MEDS: metFORMIN HCL 500 MG TABLET (FP) PO SCH ×2 (06:45→16:19)
[2020-02-22] MEDS: PRENATAL VITAMINS W/ FOLIC ACID TABLET (FP) PO SCH (10:21)
[2020-02-22] MEDS: ASPIRIN 81 MG CHEWABLE TABLETS PO SCH (10:21)
[2020-02-22] MEDS: NICOTINE 7 MG/24 HOURS TOPICAL PATCH TD SCH (10:21)
[2020-02-22] MEDS: IBUPROFEN 400 MG TABLET (FP) PO PRN (10:22)
[2020-02-22] MEDS: CLOTRIMAZOLE 1% CREAM 15 GM TUBE TP SCH ×2 (10:22→21:32)
[2020-02-22] MEDS: TOLNAFTATE 1% CREAM 15 GM TUBE TP SCH ×2 (10:22→21:32)
[2020-02-22] MEDS: ENALAPRIL MALEATE 10 MG TABLET (FP) PO SCH ×2 (10:23→21:31)
[2020-02-22] MEDS: CHLORHEXIDINE GLUCONATE 0.12% 15ML CUP MM SCH ×2 (13:59→17:39)
[2020-02-22] MEDS: traZODone HCL 100 MG TABLET (FP) PO SCH (21:30)
[2020-02-22] MEDS: MELATONIN 5 MG TABLETS PO SCH (21:31)
[2020-02-22] MEDS: THIAMINE HCL 100 MG TABLET (FP) PO SCH (21:32)
[2020-02-23] MEDS: metFORMIN HCL 500 MG TABLET (FP) PO SCH ×2 (06:45→17:14)
[2020-02-23] MEDS: glyBURIDE 5 MG TABLET PO SCH ×2 (06:45→16:56)
[2020-02-23] MEDS: IBUPROFEN 400 MG TABLET (FP) PO PRN (06:46)
[2020-02-23] MEDS: INSULIN SLIDING SCALE (NOVOLOG) 1 VIAL SQ SCH ×2 (06:48→16:56)
[2020-02-23] MEDS: ENALAPRIL MALEATE 10 MG TABLET (FP) PO SCH ×2 (10:51→21:21)
[2020-02-23] MEDS: PRENATAL VITAMINS W/ FOLIC ACID TABLET (FP) PO SCH (10:51)
[2020-02-23] MEDS: ASPIRIN 81 MG CHEWABLE TABLETS PO SCH (10:51)
[2020-02-23] MEDS: CLOTRIMAZOLE 1% CREAM 15 GM TUBE TP SCH ×2 (10:52→21:22)
[2020-02-23] MEDS: TOLNAFTATE 1% CREAM 15 GM TUBE TP SCH ×2 (10:52→21:21)
[2020-02-23] MEDS: NICOTINE 7 MG/24 HOURS TOPICAL PATCH TD SCH (10:52)
[2020-02-23] MEDS: CHLORHEXIDINE GLUCONATE 0.12% 15ML CUP MM SCH ×2 (14:47→17:13)
[2020-02-23] MEDS: THIAMINE HCL 100 MG TABLET (FP) PO SCH (21:20)
[2020-02-23] MEDS: traZODone HCL 100 MG TABLET (FP) PO SCH (21:20)
[2020-02-23] MEDS: MELATONIN 5 MG TABLETS PO SCH (21:21)
[2020-02-24] MEDS: INSULIN SLIDING SCALE (NOVOLOG) 1 VIAL SQ SCH ×2 (06:08→16:50)
[2020-02-24] MEDS: glyBURIDE 5 MG TABLET PO SCH ×2 (06:08→16:49)
[2020-02-24] MEDS: metFORMIN HCL 500 MG TABLET (FP) PO SCH ×2 (06:08→16:49)
[2020-02-24] MEDS: PRENATAL VITAMINS W/ FOLIC ACID TABLET (FP) PO SCH (10:41)
[2020-02-24] MEDS: ASPIRIN 81 MG CHEWABLE TABLETS PO SCH (10:41)
[2020-02-24] MEDS: ENALAPRIL MALEATE 10 MG TABLET (FP) PO SCH ×2 (10:41→21:41)
[2020-02-24] MEDS: NICOTINE 7 MG/24 HOURS TOPICAL PATCH TD SCH (10:41)
[2020-02-24] MEDS: CLOTRIMAZOLE 1% CREAM 15 GM TUBE TP SCH ×2 (10:42→21:40)
[2020-02-24] MEDS: TOLNAFTATE 1% CREAM 15 GM TUBE TP SCH ×2 (10:42→21:40)
[2020-02-24] MEDS: CHLORHEXIDINE GLUCONATE 0.12% 15ML CUP MM SCH (14:39)
[2020-02-24] MEDS: IBUPROFEN 400 MG TABLET (FP) PO PRN (14:39)
[2020-02-24] MEDS ORDERED: LIDOCAINE VISCOUS 2% ORAL/TOP 20 ML UNIT-DOSE CUP MM PRN (16:47)
[2020-02-24] MEDS: CHLORHEXIDINE GLUCONATE 118 ML MOUTHWASH MM SCH (17:31)
[2020-02-24] MEDS: traZODone HCL 100 MG TABLET (FP) PO SCH (21:41)
[2020-02-24] MEDS: THIAMINE HCL 100 MG TABLET (FP) PO SCH (21:41)
[2020-02-24] MEDS: MELATONIN 5 MG TABLETS PO SCH (21:41)
[2020-02-25] MEDS: glyBURIDE 5 MG TABLET PO SCH ×2 (06:22→17:00)
[2020-02-25] MEDS: INSULIN SLIDING SCALE (NOVOLOG) 1 VIAL SQ SCH ×2 (06:23→17:00)
[2020-02-25] MEDS: metFORMIN HCL 500 MG TABLET (FP) PO SCH ×2 (06:23→17:00)
[2020-02-25] MEDS: ENALAPRIL MALEATE 10 MG TABLET (FP) PO SCH ×2 (11:53→21:52)
[2020-02-25] MEDS: ASPIRIN 81 MG CHEWABLE TABLETS PO SCH (11:53)
[2020-02-25] MEDS: PRENATAL VITAMINS W/ FOLIC ACID TABLET (FP) PO SCH (11:53)
[2020-02-25] MEDS: NICOTINE 7 MG/24 HOURS TOPICAL PATCH TD SCH (11:54)
[2020-02-25] MEDS: CLOTRIMAZOLE 1% CREAM 15 GM TUBE TP SCH ×2 (11:54→21:51)
[2020-02-25] MEDS: TOLNAFTATE 1% CREAM 15 GM TUBE TP SCH ×2 (11:54→21:51)
[2020-02-25] MEDS: CHLORHEXIDINE GLUCONATE 118 ML MOUTHWASH MM SCH ×2 (14:39→17:23)
[2020-02-25] MEDS: traZODone HCL 100 MG TABLET (FP) PO SCH (21:52)
[2020-02-25] MEDS: MELATONIN 5 MG TABLETS PO SCH (21:52)
[2020-02-25] MEDS: THIAMINE HCL 100 MG TABLET (FP) PO SCH (21:52)
[2020-02-26] MEDS: glyBURIDE 5 MG TABLET PO SCH ×2 (06:14→16:31)
[2020-02-26] MEDS: IBUPROFEN 400 MG TABLET (FP) PO PRN ×2 (06:15→21:29)
[2020-02-26] MEDS: INSULIN SLIDING SCALE (NOVOLOG) 1 VIAL SQ SCH ×2 (06:16→16:31)
[2020-02-26] MEDS: metFORMIN HCL 500 MG TABLET (FP) PO SCH ×2 (06:17→16:31)
[2020-02-26] MEDS: ASPIRIN 81 MG CHEWABLE TABLETS PO SCH (09:03)
[2020-02-26] MEDS: CLOTRIMAZOLE 1% CREAM 15 GM TUBE TP SCH ×2 (09:04→22:08)
[2020-02-26] MEDS: TOLNAFTATE 1% CREAM 15 GM TUBE TP SCH ×2 (09:04→22:08)
[2020-02-26] MEDS: NICOTINE 7 MG/24 HOURS TOPICAL PATCH TD SCH (09:04)
[2020-02-26] MEDS: PRENATAL VITAMINS W/ FOLIC ACID TABLET (FP) PO SCH (09:04)
[2020-02-26] MEDS: ENALAPRIL MALEATE 10 MG TABLET (FP) PO SCH ×2 (09:04→21:29)
--- NOTE | 2020-02-26 11:49 | PN ---
S Progress Note Note: Pt requesting Psych consult stating "insomnia, depressed in and out because recently lost my mother. And i have a hx of Schizophrenia and wants to take care of myself here now and keep thigs all together". Denies s/h/i. Vital Signs - 24 hr 02/25/20 02/25/20 02/26/20 12:35 19:15 06:07 Temperature 97.1 F L 97.8 F Pulse Rate 94 H 94 H Respiratory 18 18 Rate Blood Pressure 128/77 125/71 O2 Sat by Pulse 97 96 Oximetry (%) Alert o x 3 nad oob ambulating with steady gait Insomnia Bereavement Psych consult ordered
[2020-02-26] MEDS: CHLORHEXIDINE GLUCONATE 118 ML MOUTHWASH MM SCH ×2 (13:50→18:09)
--- NOTE | 2020-02-26 17:51 | PN ---
Psychiatric Progress Note Vital Signs: Vital Signs Period Temp Pulse Resp BP Sys/Vu Pulse Ox Last 24 Hr 97.1 F-97.8 F 94-94 18-18 125-128/71-77 95-96 Date of Session: 02/26/20 Chief Complaint:: " I feel sad and i'm not sleeping at all through the night." HPI: Patient admitted to for alcohol, cocaine, and cannabis dependence. ROS: Patient is alert +oriented X3. Patient is cooperative but mildly anxious. Current Medications: Active Medications Generic Name Dose Route Start Last Admin Trade Name Freq PRN Reason Stop Dose Admin Acetaminophen 650 mg 02/17/20 11:27 02/21/20 10:15 Tylenol - PO 650 mg Q4H PRN Administration FEVER Al Hydroxide/Mg Hydroxide 30 ml 02/17/20 11:27 02/18/20 06:41 Mylanta Oral Suspension - PO 30 ml Q6H PRN Administration DYSPEPSIA Aspirin 81 mg 02/18/20 10:00 02/26/20 09:03 Asa - PO 81 mg DAILY TIFFANIE Administration Chlorhexidine Gluconate 15 ml 02/24/20 18:00 02/26/20 13:50 Chlorhexidine Gluconate MM 15 ml BID@1400,1800 TIFFANIE Administration Clotrimazole 1 applic 02/17/20 22:00 02/26/20 09:04 Lotrimin 1% Cream - TP Not Given BID TIFFANIE Enalapril Maleate 10 mg 02/17/20 22:00 02/26/20 09:04 Vasotec - PO 10 mg BID TIFFANIE Administration Glyburide 5 mg 02/17/20 16:30 02/26/20 16:31 Diabeta - PO 5 mg BIDAC TIFFANIE Administration Guaifenesin 10 ml 02/17/20 11:27 Robitussin - PO Q6H PRN COUGH Ibuprofen 400 mg 02/17/20 11:27 02/26/20 06:15 Motrin - PO 400 mg Q6H PRN Administration Pain level 4-6 Insulin Aspart 1 vial 02/17/20 16:30 02/26/20 16:31 Novolog Vial Sliding Scale - SQ Not Given BIDAC [facility] Protocol Lidocaine HCl 20 ml 02/24/20 16:47 Xylocaine 2% Viscous Oral - MM TID PRN ORAL PAIN/MOUTH SORES Loperamide HCl 4 mg 02/17/20 11:27 Imodium - PO Q6H PRN DIARRHEA Magnesium Citrate 300 ml 02/17/20 11:27 02/24/20 22:46 Citroma - PO 300 ml Q48H PRN Administration CONSTIPATION Magnesium Hydroxide 30 ml 02/17/20 11:27 02/24/20 18:35 Milk Of Magnesia - PO 30 ml DAILY PRN Administration CONSTIPATION Melatonin 5 mg 02/17/20 22:00 02/25/20 21:52 Melatonin PO 5 mg HS TIFFANIE Administration Metformin HCl 500 mg 02/17/20 16:30 02/26/20 16:31 Glucophage - PO Not Given BIDAC TIFFANIE Nicotine 7 mg 02/18/20 10:00 02/26/20 09:04 Nicoderm Patch - TD Not Given DAILY TIFFANIE Nicotine Polacrilex 2 mg 02/17/20 11:27 Nicorette Gum - BC Q2H PRN NICOTINE REPLACEMENT RX Multivit/Folic Acid/Iron 1 tab 02/18/20 10:00 02/26/20 09:04 Vitamins (Sjr) - PO 1 tab DAILY TIFFANIE Administration Pseudoephedrine/Triprolidine 1 combo 02/17/20 11:27 Actifed - PO TID PRN NASAL CONGESTION Suvorexant 5 mg 02/26/20 22:00 Belsomra PO 02/29/20 21:59 HS PRN INSOMNIA Thiamine HCl 100 mg 02/17/20 22:00 02/25/20 21:52 Vitamin B1 - PO 100 mg HS TIFFANIE Administration Tolnaftate 1 applic 02/17/20 22:00 02/26/20 09:04 Tinactin 1% Cream - TP Not Given BID TIFFANIE Trazodone HCl 150 mg 02/26/20 22:00 Desyrel - PO HS TIFFANIE Medication(s) Change(s): Yes. Will d/c trazodone 100mg HS. Will order Trazodone 150mg HS + Belsomra 5mg HS. Current Side Effect: No Lab tests ordered: No Lab tests reviewed: Yes Provider note:: Mr. Gomez reports feeling depressed due to the of his whom overdosed two weeks ago. Patient reports being diagnosed with schizoaffective disorder in [id number] while in a [facility] program in [facility]. Patient unable to recall medications prescribed. Patient denies history of psychiatric hospitalization, outpatient psychiatric care, and suicide attempt. Patient is totally lost in follow up care. Patient is scheduled for discharge on sunday03/01/20 but is unsure if he wants to return to ward. Patient stated that he needs to see a psychiatrist after discharge so that he can obtain SSI. Patient may be possibly seeking secondary gain as he asking magnetic tape typewriter operator if he can get a copy of my documentation so that he it can start a "paper trail." Cart Driver informed patient that he would need to obtain paperwork from Medical Records. Patient satisifed and receptive to feedback. Will increase trazodone dose and order Belsomra 5mg HS for insomnia. Benefits and side effects discussed. Verbal consent given. Total face to face time:: 25 Mental Status Exam - Mental Status Exam Alert and Oriented to: Time, Place, Person Cognitive Function: Good Patient Appearance: Well Groomed Mood: Sad Affect: Mood Congruent Patient Behavior: Cooperative Speech Pattern: Appropriate Voice Loudness: Normal Thought Process: Goal Oriented Thought Disorder: Not Present Hallucinations: Denies Suicidal Ideation: Denies Homicidal Ideation: Denies Insight/Judgement: Poor Sleep: Poorly Appetite: Fair Muscle strength/Tone: Normal Gait/Station: Normal Psychiatric Treatment Plan - Problem List (1) Substance-induced sleep disorder Current Visit: Yes (2) Bereavement Current Visit: Yes (3) Alcohol dependence Current Visit: Yes (4) Cannabis dependence Current Visit: Yes (5) Cocaine dependence Current Visit: Yes
[2020-02-26] MEDS: traZODone HCL 50 MG TABLET (FP) PO SCH (21:27)
[2020-02-26] MEDS: SUVOREXANT 5 MG TABLET PO PRN (21:29)
[2020-02-26] MEDS: THIAMINE HCL 100 MG TABLET (FP) PO SCH (21:29)
[2020-02-26] MEDS: MELATONIN 5 MG TABLETS PO SCH (22:08)
[2020-02-27] MEDS: glyBURIDE 5 MG TABLET PO SCH ×2 (06:38→16:49)
[2020-02-27] MEDS: IBUPROFEN 400 MG TABLET (FP) PO PRN ×2 (06:38→22:04)
[2020-02-27] MEDS: metFORMIN HCL 500 MG TABLET (FP) PO SCH ×2 (06:40→16:50)
[2020-02-27] MEDS: INSULIN SLIDING SCALE (NOVOLOG) 1 VIAL SQ SCH ×2 (06:40→17:04)
[2020-02-27] MEDS: PRENATAL VITAMINS W/ FOLIC ACID TABLET (FP) PO SCH (10:39)
[2020-02-27] MEDS: ENALAPRIL MALEATE 10 MG TABLET (FP) PO SCH ×2 (10:40→22:02)
[2020-02-27] MEDS: TOLNAFTATE 1% CREAM 15 GM TUBE TP SCH ×2 (10:40→22:05)
[2020-02-27] MEDS: ASPIRIN 81 MG CHEWABLE TABLETS PO SCH (10:40)
[2020-02-27] MEDS: NICOTINE 7 MG/24 HOURS TOPICAL PATCH TD SCH (10:41)
[2020-02-27] MEDS: CLOTRIMAZOLE 1% CREAM 15 GM TUBE TP SCH ×2 (10:41→22:05)
[2020-02-27] MEDS: CHLORHEXIDINE GLUCONATE 118 ML MOUTHWASH MM SCH ×2 (13:09→17:31)
[2020-02-27] MEDS: traZODone HCL 50 MG TABLET (FP) PO SCH (22:01)
[2020-02-27] MEDS: THIAMINE HCL 100 MG TABLET (FP) PO SCH (22:01)
[2020-02-27] MEDS: MELATONIN 5 MG TABLETS PO SCH (22:02)
[2020-02-27] MEDS: SUVOREXANT 5 MG TABLET PO PRN (22:04)
[2020-02-28] MEDS: metFORMIN HCL 500 MG TABLET (FP) PO SCH ×2 (06:58→16:44)
[2020-02-28] MEDS: INSULIN SLIDING SCALE (NOVOLOG) 1 VIAL SQ SCH ×2 (06:58→16:44)
[2020-02-28] MEDS: glyBURIDE 5 MG TABLET PO SCH ×2 (06:58→16:44)
[2020-02-28] MEDS: PRENATAL VITAMINS W/ FOLIC ACID TABLET (FP) PO SCH (09:35)
[2020-02-28] MEDS: ENALAPRIL MALEATE 10 MG TABLET (FP) PO SCH ×2 (09:35→21:43)
[2020-02-28] MEDS: ASPIRIN 81 MG CHEWABLE TABLETS PO SCH (09:35)
[2020-02-28] MEDS: NICOTINE 7 MG/24 HOURS TOPICAL PATCH TD SCH (09:36)
[2020-02-28] MEDS: CLOTRIMAZOLE 1% CREAM 15 GM TUBE TP SCH ×2 (09:36)
[2020-02-28] MEDS: TOLNAFTATE 1% CREAM 15 GM TUBE TP SCH ×2 (09:37→21:43)
[2020-02-28] MEDS: CHLORHEXIDINE GLUCONATE 118 ML MOUTHWASH MM SCH ×2 (14:02→18:19)
[2020-02-28] MEDS: traZODone HCL 50 MG TABLET (FP) PO SCH (21:40)
[2020-02-28] MEDS: SUVOREXANT 5 MG TABLET PO PRN (21:40)
[2020-02-28] MEDS: IBUPROFEN 400 MG TABLET (FP) PO PRN (21:42)
[2020-02-28] MEDS: THIAMINE HCL 100 MG TABLET (FP) PO SCH (21:43)
[2020-02-28] MEDS: MELATONIN 5 MG TABLETS PO SCH (21:43)
[2020-02-29] MEDS: metFORMIN HCL 500 MG TABLET (FP) PO SCH ×2 (06:41→16:59)
[2020-02-29] MEDS: INSULIN SLIDING SCALE (NOVOLOG) 1 VIAL SQ SCH ×2 (06:41→17:00)
[2020-02-29] MEDS: glyBURIDE 5 MG TABLET PO SCH ×2 (06:41→16:59)
[2020-02-29] MEDS: PRENATAL VITAMINS W/ FOLIC ACID TABLET (FP) PO SCH (10:32)
[2020-02-29] MEDS: ASPIRIN 81 MG CHEWABLE TABLETS PO SCH (10:32)
[2020-02-29] MEDS: ENALAPRIL MALEATE 10 MG TABLET (FP) PO SCH ×2 (10:33→21:09)
[2020-02-29] MEDS: CLOTRIMAZOLE 1% CREAM 15 GM TUBE TP SCH ×2 (10:34→22:10)
[2020-02-29] MEDS: NICOTINE 7 MG/24 HOURS TOPICAL PATCH TD SCH (10:34)
[2020-02-29] MEDS: TOLNAFTATE 1% CREAM 15 GM TUBE TP SCH ×2 (10:34→22:10)
[2020-02-29] MEDS: CHLORHEXIDINE GLUCONATE 118 ML MOUTHWASH MM SCH ×2 (13:33→18:58)
[2020-02-29] MEDS: ACETAMINOPHEN 325 MG TABLET (FP) PO PRN (19:38)
[2020-02-29] MEDS ORDERED: MASKS NR ONE (19:46)
[2020-02-29] MEDS: SUVOREXANT 5 MG TABLET PO PRN (21:09)
[2020-02-29] MEDS: traZODone HCL 50 MG TABLET (FP) PO SCH (21:09)
[2020-02-29] MEDS: THIAMINE HCL 100 MG TABLET (FP) PO SCH (21:09)
[2020-02-29] MEDS: MELATONIN 5 MG TABLETS PO SCH (22:10)
[2020-03-01] MEDS: IBUPROFEN 400 MG TABLET (FP) PO PRN (04:20)
[2020-03-01 05:51] VITALS: BP 138/80; PULSE 98; TEMP 97.3
[2020-03-01] MEDS: glyBURIDE 5 MG TABLET PO SCH (06:19)
[2020-03-01] MEDS: INSULIN SLIDING SCALE (NOVOLOG) 1 VIAL SQ SCH (06:20)
[2020-03-01] MEDS: metFORMIN HCL 500 MG TABLET (FP) PO SCH (06:21)
--- NOTE | 2020-03-01 08:33 | DS ---
[facility] Rehab Discharge Summary - [facility] Rehab Discharge Summary Admission Date: 02/17/20 Discharge Date: 03/01/20 - History Present History: Alcohol dependence, Cannabis dependence, Cocaine dependence Pertinent Past History: HTN DM HLDBereavement Sleep disorder - Discharge Physical Exam Vital Signs: Vital Signs Temperature 97.3 F L 03/01/20 06:53 Pulse Rate 98 H 03/01/20 06:53 Respiratory Rate 18 03/01/20 06:53 Blood Pressure 138/80 03/01/20 06:53 O2 Sat by Pulse Oximetry (%) 94 L 03/01/20 06:53 General:Alert o x 3, WDWM,nad and oob ambulating with steady gait. cardiac;s1 s2, rrr lungs:ctab abdomen:soft, +bs,nt,nd MSK:Active ROM, all limbs;slight discolored toes, mary.; no edema. Skin:no edema, skin intact. Pertinent Admission Physical Exam Findings: Laboratory Tests 02/17/20 02/18/20 02/18/20 16:36 06:39 12:01 POC Glucometer 200 215 186 02/18/20 02/19/20 02/19/20 16:36 07:00 16:45 POC Glucometer 184 196 177 02/20/20 02/20/20 02/20/20 06:47 17:12 21:45 POC Glucometer 190 234 226 02/21/20 02/21/20 02/22/20 06:33 16:43 06:42 POC Glucometer 151 145 132 02/22/20 02/23/20 02/23/20 16:18 06:44 16:55 POC Glucometer 114 138 127 02/24/20 02/24/20 02/25/20 06:07 16:48 06:21 POC Glucometer 158 73 191 02/25/20 02/26/20 02/26/20 16:59 06:14 16:27 POC Glucometer 100 172 144 02/27/20 02/27/20 02/28/20 06:36 16:49 06:56 POC Glucometer 137 131 136 02/28/20 02/29/20 02/29/20 16:43 06:40 16:58 POC Glucometer 143 133 151 03/01/20 06:18 POC Glucometer 123 - Treatment Discharge Condition: Discharge condition good, Rehabilitated safely, Responded well, Outpatient referral accepted Hospital Course: Pt is a 44 y/o male admitted to rehab after alcohol detox on . Pt completed rehab treatment and discharging today to aftercare at [place], [place]. - Medication Discharge Medications: Ambulatory Orders Insulin (Novolog) [Novolog Flexpen -] 0 units SQ ACHS #1 ml 09/28/16 Insulin Glargine,Hum.rec.anlog [Lantus Solostar PEN -] 15 units SQ HS #1 ml 09/28/16 Aspirin [ASA -] 81 mg PO DAILY #30 mg 03/01/20 Atorvastatin Ca [Lipitor] 80 mg PO HS #30 mg 03/01/20 Enalapril Maleate [Vasotec -] 10 mg PO BID #60 mg 03/01/20 Glyburide [Micronase -] 5 mg PO BID #60 mg 03/01/20 Loratadine [Claritin -] 10 mg PO DAILY #30 mg 03/01/20 Metformin HCl [Glucophage] 500 mg PO BIDAC #60 mg 03/01/20 - Medication-Assisted Treatment (MAT) Medication-Assisted Treatment (MAT): No - Discharge Instructions Diet, activity, other medical instructions: Diet:TACHO/NCS Activity: oob ad ines Other medical instructions:follow up with Medical management at [facility] on [place], [place] for medical management. - Diagnosis (1) Alcohol dependence Status: Chronic Qualifiers: Substance use status: uncomplicated Qualified Code(s): F10.20 - Alcohol dependence, uncomplicated (2) Cannabis dependence Status: Chronic (3) Cocaine dependence Status: Chronic Qualifiers: Substance use status: uncomplicated Qualified Code(s): F14.20 - Cocaine dependence, uncomplicated (4) Nicotine dependence Status: Chronic Qualifiers: Nicotine product type: cigarettes Substance use status: uncomplicated Qualified Code(s): F17.210 - Nicotine dependence, cigarettes, uncomplicated (5) Diabetes mellitus Status: Chronic Qualifiers: Diabetes mellitus type: type 2 Diabetes mellitus assistant terminal manager insulin use: with assistant terminal manager use Diabetes mellitus complication status: without complication Qualified Code(s): E11.9 - Type 2 diabetes mellitus without complications; Z79.4 - terminal gauger (current) use of insulin (6) Essential hypertension Status: Chronic (7) Hypercholesterolemia Status: Chronic (8) Homeless Status: Acute (9) Seasonal and perennial allergic rhinitis Status: Chronic - Follow-up Referral Minutes to complete discharge: 25 - AMA Did Patient Leave Against Medical Advice: No Additional Comments: Courtesy Rx for Aspirin 81 mg po daily #30; Atorvastatin 80 mg po HS #30; Enalapril 10 mg po BID #60; Glyburide 5 mg po BID #60 Loratadine 10 mg po daily #30; Metformin 500 mg po BID #60 electronically sent to [facility] for picker/puller after discharge. Pt reminded to follow up with primary care for further medical management.
[2020-03-01] MEDS: PRENATAL VITAMINS W/ FOLIC ACID TABLET (FP) PO SCH (09:10)
[2020-03-01] MEDS: ASPIRIN 81 MG CHEWABLE TABLETS PO SCH (09:10)
[2020-03-01] MEDS: ENALAPRIL MALEATE 10 MG TABLET (FP) PO SCH (09:10)
[2020-03-01] MEDS: CLOTRIMAZOLE 1% CREAM 15 GM TUBE TP SCH (09:11)
[2020-03-01] MEDS: NICOTINE 7 MG/24 HOURS TOPICAL PATCH TD SCH (09:11)
[2020-03-01] MEDS: TOLNAFTATE 1% CREAM 15 GM TUBE TP SCH (09:11)
== END 2020-03-01 09:15 | disposition home or self-care (01) | DRG 772 ==
LOC: YASAS 11:57 → Y5N 11:59
PROVIDERS: ADMIT Allergy & Immunology; ATTEND Allergy & Immunology
PROC: HZ42ZZZ Group Counseling for Substance Abuse Treatment, Cognitive-Behavioral (ICD-10-PCS; principal; 2020-02-17)
DX: F10.20 Alcohol dependence, uncomplicated (principal); F14.20 Cocaine dependence, uncomplicated; F12.20 Cannabis dependence, uncomplicated; F17.210 Nicotine dependence, cigarettes, uncomplicated; F19.282 Other psychoactive substance dependence with psychoactive substance-induced sleep disorder; F19.24 Other psychoactive substance dependence with psychoactive substance-induced mood disorder; F31.9 Bipolar disorder, unspecified; F20.9 Schizophrenia, unspecified; E78.5 Hyperlipidemia, unspecified; E11.9 Type 2 diabetes mellitus without complications; I10 Essential (primary) hypertension; J30.2 Other seasonal allergic rhinitis; B35.1 Tinea unguium; B35.3 Tinea pedis; Z79.82 Long term (current) use of aspirin; Z79.4 Long term (current) use of insulin; Z63.4 Disappearance and death of family member; Z56.0 Unemployment, unspecified; Z59.0 Homelessness
CPT/HCPCS: 82962